=== PATIENT | female | born 1950 | race Caucasian/White ===

== ENCOUNTER → 2017-03-28 | Outpatient (CLI) | payer OTHER | LOC: FIMAGING 15:01 | PROVIDERS: ATTEND Orthopaedic Surgery | DX: I82.432 Acute embolism and thrombosis of left popliteal vein (principal); Z96.652 Presence of left artificial knee joint ==

== ENCOUNTER 2017-08-29 04:22 | Inpatient (IN) | payer OTHER ==
--- NOTE | 2017-08-29 04:28 | EDPHY ---
H & P HPI/ROS: HPI CHIEF COMPLAINT: Alcohol intoxication, fall, right knee pain HISTORY OF PRESENT ILLNESS: Patient is a 67-year-old female significant past medical history for depression, anxiety, she drank alcohol this evening and had 2 large glasses of vodka. She states she got intoxicated and tripped on something coming back in her living room. She fell she thinks she fell around 10:00 p.m. last night. She states that she laid on the ground for multiple hours she did not want alert her family. She was unable to bear weight fully weight on her right knee and decided call 911. EMS arrived to find her on the ground. Noted she has a left eyebrow hematoma and a right hand skin tear. Additionally she complains of right knee pain worse with range of motion. Past Medical History: Anxiety and depression Past Surgical History: Left knee replacement bilateral hip surgery, cholecystectomy, multiple orthopedic surgeries Social History: Daily alcohol use. Denies illicit drugs or tobacco. Family History: Noncontributory ROS REVIEW OF SYSTEMS: A comprehensive 10 point review of systems is otherwise negative aside from elements mentioned in the history of present illness. Exam Constitutional smells of alcohol, intoxicated, triage nursing summary reviewed , vital signs reviewed, awake/alert. Eyes normal conjunctivae and sclera, EOMI, PERRLA. HENT head/neck: Left eyebrow hematoma present, no significant laceration, no midline cervical spine pain or step-offs on palpation, moist mucus membranes, no epistaxis, neck supple/ no meningismus, no raccoon eyes. Respiratory clear to auscultation bilaterally, normal breath sounds, no respiratory distress, no wheezing. Cardiovascular rate normal, regular rhythm, no murmur, no edema, distal pulses normal. Gastrointestinal soft, non-tender, no rebound, no guarding, normal bowel sounds, no distension, no pulsatile mass. Genitourinary no CVA tenderness. Musculoskeletal no midline vertebral tenderness, full range of motion, no calf swelling, no tenderness of extremities, no meningismus, good pulses, neurovascularly intact. Right leg: This is neurovascularly intact. Warm extremity. No significant sign of trauma to the right knee. However with range of motion of the right knee there is pain. Distally good pulse. Skin pink, warm, & dry, no rash, skin atraumatic. Neurologic awake, alert and oriented x 3, AAOx3, moves all 4 extremities equally, motor intact, sensory intact, CN II-XII intact, normal cerebellar, normal vision, normal speech. Psychiatric normal mood/affect. Heme/Lymph/Immune no lymphadenopathy. Differential Diagnosis: Includes but is not limited to in a particular order acute alcohol intoxication, rhabdomyolysis, intracranial bleed, closed head injury, subdural, skull fracture, cervical spine injury, right knee fracture, right knee contusion, ligamentous injury, meniscal injury. Medical Decision Making: Plan for this patient CT head without contrast CT cervical spine without contrast for trauma, x-ray right knee, check basic blood work including CK and kidney function, gentle IV hydration serum alcohol level. Re-evaluation: ED x-ray right knee. This interpreted by myself. IM nail comes down the femur. Significant degenerative joint disease of the knee. Joint space narrowing of the medial aspect of the knee joint. Additionally on the lateral aspect of the femur specifically the femoral condyle there appears to be possibly a small chip fracture. This patient will be placed in knee immobilizer. Crutches. And orthopedic follow-up. 0541: Updated patient about x-ray findings. Her CT scan of her head and neck are negative for acute traumatic injury. She has been placed in knee immobilizer her wounds have been cleaned and Steri-Strips have been placed to her right hand skin tear. There is no visible laceration that needs to be repaired. She is comfortable going home. I do recommend she follows up with orthopedic surgeon. And gets her x-ray reviewed of her right knee. I recommend to her that she does not bear weight of her right knee. Source: Patient, EMS - Personal History Tetanus Vaccine Date: 2006 - Medical/Surgical History Hx Asthma: No Hx Chronic Respiratory Disease: No Hx Diabetes: No Hx Cardiac Disease: No Hx Renal Disease: No Hx Cirrhosis: No Hx Alcoholism: No Hx HIV/AIDS: No Hx Splenectomy or Spleen Trauma: No Other PMH: left hip replacement,osteoporosis,mitral valve,anxiety,depression, pulp HTN - Social History Smoking Status: Never smoked Constitutional: Initial Vital Signs Temperature (C) 37.6 C 08/29/17 04:28 Heart Rate 91 08/29/17 04:28 Respiratory Rate 20 08/29/17 04:28 Blood Pressure 139/79 H 08/29/17 04:28 O2 Sat (%) 94 08/29/17 04:28 O2 Delivery Mode Room Air Allergies/Adverse Reactions: oxycodone [Oxycodone] Allergy (Mild, Verified 08/29/17 04:31) Itching alendronate sodium [From Fosamax] Allergy (Verified 08/29/17 04:31) hydromorphone HCl [From Dilaudid] Allergy (Verified 08/29/17 04:31) Other-Enter Comments morphine [Morphine] Allergy (Verified 08/29/17 04:31) Itching HAYFEVER Allergy (Mild, Uncoded 04/26/12 12:33) Other-Enter Comments Home Medications: Medication Instructions Recorded Cholecalciferol Vit D3 [Vitamin D3 1,000 units PO DAILY 09/30/13 1000 units (OTC)] Citalopram Hydrobromide 40 mg PO DAILY 09/30/13 [Citalopram HBr 40 MG] Cyanocobalamin [Vitamin B12 1000 1,000 mcg PO DAILY 09/30/13 MCG (OTC)] Ferrous Gluconate [Ferrous 324 mg PO DAILY 09/30/13 Gluconate 325 MG (OTC)] Furosemide [Lasix 20 MG (RX)] 40 mg PO DAILY 09/30/13 Herbals/Supplements -Info Only 1 each PO AD 09/30/13 Spironolactone [Aldactone 25 MG 12.5 mg PO DAILY 09/30/13 (RX)] QUEtiapine FUMARATE [Seroquel 25 12.5 mg PO DAILY 01/07/14 mg (RX)] Medical Decision Making - Data Points Laboratory Results: Laboratory Results 08/29/17 04:45 08/29/17 04:45 08/29/17 08/29/17 04:45 04:45 WBC 9.78 10^3/uL H 10^3/uL (3.80-9.50) RBC 4.57 10^6/uL 10^6/uL (4.18-5.33) Hgb 13.6 g/dL g/dL (12.6-16.3) Hct 41.3 % % (38.0-47.0) MCV 90.4 fL fL (81.5-99.8) MCH 29.8 pg pg (27.9-34.1) MCHC 32.9 g/dL g/dL (32.4-36.7) RDW 16.9 % H % (11.5-15.2) Plt Count 255 10^3/uL 10^3/uL (150-400) MPV 9.6 fL fL (8.7-11.7) Neut % (Auto) 77.2 % H % (39.3-74.2) Lymph % (Auto) 13.8 % L % (15.0-45.0) [place] % (Auto) 8.4 % % (4.5-13.0) Eos % (Auto) 0.1 % L % (0.6-7.6) Baso % (Auto) 0.3 % % (0.3-1.7) Nucleat RBC Rel Count 0.0 % % (0.0-0.2) Absolute Neuts (auto) 7.55 10^3/uL H 10^3/uL (1.70-6.50) Absolute Lymphs (auto) 1.35 10^3/uL 10^3/uL (1.00-3.00) Absolute Monos (auto) 0.82 10^3/uL H 10^3/uL (0.30-0.80) Absolute Eos (auto) 0.01 10^3/uL L 10^3/uL (0.03-0.40) Absolute Basos (auto) 0.03 10^3/uL 10^3/uL (0.02-0.10) Absolute Nucleated RBC 0.00 10^3/uL 10^3/uL (0-0.01) Immature Gran % 0.2 % % (0.0-1.1) Immature Gran # 0.02 10^3/uL 10^3/uL (0.00-0.10) Sodium 134 mEq/L mEq/L (134-144) Potassium 4.0 mEq/L mEq/L (3.5-5.2) Chloride 95 mEq/L L mEq/L (97-110) Carbon Dioxide 22 mEq/l mEq/l (22-31) Anion Gap 17 mEq/L H mEq/L (8-16) BUN 10 mg/dL mg/dL (7-23) Creatinine 0.6 mg/dL mg/dL (0.6-1.0) Estimated GFR > 60 Glucose 77 mg/dL mg/dL (70-100) Calcium 9.0 mg/dL mg/dL (8.5-10.4) Creatine Kinase 56 IU/L IU/L (0-156) Ethyl Alcohol 155 mg/dL H mg/dL (0-10) Medications Given: Discontinued Medications Sodium Chloride (Ns) 1,000 mls @ 0 mls/hr IV ONCE ONE PRN Reason: Wide Open Stop: 08/29/17 04:30 Last Admin: 08/29/17 04:45 Dose: 1,000 mls Departure - Departure Disposition: Home, Routine, Self-Care Clinical Impression: Hematoma Alcohol intoxication Qualifiers: Complication of substance-induced condition: uncomplicated Qualified Code(s): F10.920 - Alcohol use, unspecified with intoxication, uncomplicated Fall Qualifiers: Encounter type: initial encounter Qualified Code(s): W19.XXXA - Unspecified fall, initial encounter Contusion, knee Qualifiers: Encounter type: initial encounter Laterality: right Qualified Code(s): S80.01XA - Contusion of right knee, initial encounter Condition: Good Instructions: Fall Prevention for Older Adults (ED), Contusion in Adults (ED), Hematoma (ED) Additional Instructions: 1. Please stay in your knee immobilizer for immobilization and pain control. 2. Additionally please follow up with Orthopedics. 3. Crutches to help ambulate. 4. I do believe there may be a very small chip fracture tear knee. Follow up with Orthopedics. Referrals: Vik Aguilar MD [Medical Doctor] - As per Instructions Patient,NotPresent [Unknown] - As per Instructions Brennen Negrete MD [Medical Doctor] - As per Instructions
[2017-08-29] MEDS ORDERED: NS 1,000 ML IV ONE (04:29)
[2017-08-29 05:01] LABS: % IMMATURE GRANULYOCYTES 0.2 % (0.0-1.1); ABSOLUTE IMMATURE GRANULOCYTES 0.02 10^3/uL (0.00-0.10); ADD DIFF? NO; ADD MORPH? NO; ADD SCAN? NO; ATYPICAL LYMPHOCYTE FLAG 0 (0-99); FRAGMENT RBC FLAG 0 (0-99); HEMATOCRIT 41.3 % (38.0-47.0); HEMOGLOBIN 13.6 g/dL (12.6-16.3); LEFT SHIFT FLG 0 (0-99); LIPEMIA HEMOLYSIS FLAG 80 (0-99); MEAN CELL HEMOGLOBIN 29.8 pg (27.9-34.1); MEAN CELL HEMOGLOBIN CONCENTR. 32.9 g/dL (32.4-36.7); MEAN CELL VOLUME 90.4 fL (81.5-99.8); MEAN PLATELET VOLUME 9.6 fL (8.7-11.7); PLATELET CLUMPS FLAG 10 (0-99); PLATELET COUNT 255 10^3/uL (150-400); RED BLOOD CELL COUNT 4.57 10^6/uL (4.18-5.33); RED CELL DISTRIBUTION WIDTH 16.9 % (11.5-15.2)
[2017-08-29 05:19] LABS: ANION GAP 17 mEq/L (8-16); CARBON DIOXIDE 22 mEq/l (22-31); CHLORIDE 95 mEq/L (97-110); CREATININE 0.6 mg/dL (0.6-1.0); ETHANOL SERUM 155 mg/dL (0-10); GLOMERULAR FILTRATION RATE > 60; GLUCOSE 77 mg/dL (70-100); SODIUM 134 mEq/L (134-144)
[2017-08-29] MEDS ORDERED: ONDANSETRON 4 MG/2 ML VIAL IVP PRN (06:24)
[2017-08-29] MEDS ORDERED: ONDANSETRON DISINTEGRATING 4 MG TAB PO PRN (06:24)
--- NOTE | 2017-08-29 06:46 | PDGENHP ---
History and Physical - Chief Complaint Fall - History of Present Illness 67 yo F w/ hx of HTN, depression, and ETOH abuse presents after fall. Patient explains she had 3 large vodka drinks and then tripped. She fell and she thinks she hit her R knee, which now hurts. She has a history of multiple joint replacements and uses a cane to walk due to knee instability. Work-up in ED was notable for possible chip fracture or R lateral femoral condyle but otherwise reassuring. She was admitted because she was unable to ambulate safely while in a knee immobilizer. Patient is aware that she drinks too much and would like to stop. She drinks almost daily but denies any hx of ETOH withdrawal. History Information - Allergies/Home Medication List Allergies/Adverse Reactions: oxycodone [Oxycodone] Allergy (Mild, Verified 08/29/17 04:31) Itching alendronate sodium [From Fosamax] Allergy (Verified 08/29/17 04:31) hydromorphone HCl [From Dilaudid] Allergy (Verified 08/29/17 04:31) Other-Enter Comments morphine [Morphine] Allergy (Verified 08/29/17 04:31) Itching HAYFEVER Allergy (Mild, Uncoded 04/26/12 12:33) Other-Enter Comments Home Medications: Cholecalciferol Vit D3 [Vitamin D3 1000 units (OTC)] 1,000 units PO DAILY [Last Taken 01/07/14] Citalopram Hydrobromide [Citalopram HBr 40 MG] 40 mg PO DAILY 09/30/13 [Last Taken 01/07/14] Cyanocobalamin [Vitamin B12 1000 MCG (OTC)] 1,000 mcg PO DAILY 09/30/13 [Last Taken 01/07/14] Ferrous Gluconate [Ferrous Gluconate 325 MG (OTC)] 324 mg PO DAILY 09/30/13 [ Last Taken 01/07/14] Furosemide [Lasix 20 MG (RX)] 40 mg PO DAILY 09/30/13 [Last Taken 01/07/14] Herbals/Supplements -Info Only 1 each PO AD 09/30/13 [Last Taken 09/29/13] Spironolactone [Aldactone 25 MG (RX)] 12.5 mg PO DAILY 09/30/13 [Last Taken ] QUEtiapine FUMARATE [Seroquel 25 mg (RX)] 12.5 mg PO DAILY 01/07/14 [Last Taken 01/07/14] I have personally reviewed and updated: family history, medical history - Past Medical History hypertension Additional medical history: Depression - Surgical History Additional surgical history: Multiple joint surgeries - Family History Positive for: cancer - Social History Smoking Status: Never smoked Alcohol Use: Heavy Review of Systems Review of Systems: ROS: 10pt was reviewed & negative except for what was stated in HPI & below Physical Exam Physical Exam: Temp Pulse Resp BP Pulse Ox 37.6 C 96 20 139/79 H 95 08/29/17 04:28 08/29/17 06:25 08/29/17 06:25 08/29/17 06:25 08/29/17 06:25 Constitutional: no apparent distress, appears nourished Eyes: PERRL, EOMI Ears, Nose, Mouth, Throat: moist mucous membranes, no oral mucosal ulcers Cardiovascular: regular rate and rhythym, no murmur, rub, or gallop Respiratory: no respiratory distress, no rales or rhonchi Gastrointestinal: normoactive bowel sounds, soft, non-tender abdomen Skin: warm, normal color Musculoskeletal: full muscle strength, no muscle tenderness, other (R knee in immobilizer) Neurologic: AAOx3, CN II-XII Intact Psychiatric: interacting appropriately, not anxious Lab Data & Imaging Review 08/29/17 04:45 08/29/17 04:45 WBC 9.78 10^3/uL (3.80-9.50) H 08/29/17 04:45 RBC 4.57 10^6/uL (4.18-5.33) 08/29/17 04:45 Hgb 13.6 g/dL (12.6-16.3) 08/29/17 04:45 Hct 41.3 % (38.0-47.0) 08/29/17 04:45 MCV 90.4 fL (81.5-99.8) 08/29/17 04:45 MCH 29.8 pg (27.9-34.1) 08/29/17 04:45 MCHC 32.9 g/dL (32.4-36.7) 08/29/17 04:45 RDW 16.9 % (11.5-15.2) H 08/29/17 04:45 Plt Count 255 10^3/uL (150-400) 08/29/17 04:45 MPV 9.6 fL (8.7-11.7) 08/29/17 04:45 Neut % (Auto) 77.2 % (39.3-74.2) H 08/29/17 04:45 Lymph % (Auto) 13.8 % (15.0-45.0) L 08/29/17 04:45 [place] % (Auto) 8.4 % (4.5-13.0) 08/29/17 04:45 Eos % (Auto) 0.1 % (0.6-7.6) L 08/29/17 04:45 Baso % (Auto) 0.3 % (0.3-1.7) 08/29/17 04:45 Nucleat RBC Rel Count 0.0 % (0.0-0.2) 08/29/17 04:45 Absolute Neuts (auto) 7.55 10^3/uL (1.70-6.50) H 08/29/17 04:45 Absolute Lymphs (auto) 1.35 10^3/uL (1.00-3.00) 08/29/17 04:45 Absolute Monos (auto) 0.82 10^3/uL (0.30-0.80) H 08/29/17 04:45 Absolute Eos (auto) 0.01 10^3/uL (0.03-0.40) L 08/29/17 04:45 Absolute Basos (auto) 0.03 10^3/uL (0.02-0.10) 08/29/17 04:45 Absolute Nucleated RBC 0.00 10^3/uL (0-0.01) 08/29/17 04:45 Immature Gran % 0.2 % (0.0-1.1) 08/29/17 04:45 Immature Gran # 0.02 10^3/uL (0.00-0.10) 08/29/17 04:45 Sodium 134 mEq/L (134-144) 08/29/17 04:45 Potassium 4.0 mEq/L (3.5-5.2) 08/29/17 04:45 Chloride 95 mEq/L (97-110) L 08/29/17 04:45 Carbon Dioxide 22 mEq/l (22-31) 08/29/17 04:45 Anion Gap 17 mEq/L (8-16) H 08/29/17 04:45 BUN 10 mg/dL (7-23) 08/29/17 04:45 Creatinine 0.6 mg/dL (0.6-1.0) 08/29/17 04:45 Estimated GFR > 60 08/29/17 04:45 Glucose 77 mg/dL (70-100) 08/29/17 04:45 Calcium 9.0 mg/dL (8.5-10.4) 08/29/17 04:45 Creatine Kinase 56 IU/L (0-156) 08/29/17 04:45 Ethyl Alcohol 155 mg/dL (0-10) H 08/29/17 04:45 Assessment & Plan Assessment: 67 yo F presenting with mechanical fall admitted for inability to ambulate and R knee injury. Plan: 1. R knee pain - Xray with possible R lateral condyle fracture but no formal read yet. Patient unable to ambulate as a result. - Await formal read - Trauma surgery consulted, appreciate assistance - PT/OT consults 2. ETOH abuse - Patient understands the drinks too much and would like to stop. She has no current signs of withdrawal and denies prior history of this. - Monitor for signs of withdrawal, will not order CIWA at this time - CM consult 3. HTN - On spironolactone and furosemide as an outpatient 4. Depression - On Seroquel and Celexa as outpatient Diet - Regular Code - Full Ppx - SCDs Dispo - Admit to observation status
[2017-08-29] MEDS: ACETAMINOPHEN 325 MG TAB PO PRN (10:51)
[2017-08-29] MEDS ORDERED: fentaNYL 100 MCG/2 ML INJ IVP PRN (10:51)
[2017-08-29] MEDS: oxyCODONE IR 5 MG TAB PO PRN ×3 (10:51→21:33)
[2017-08-29] MEDS ORDERED: chlordiazePOXIDE 25 MG CAP PO PRN (10:52)
[2017-08-29] MEDS: THIAMINE HCL 500 MG in NS 100 ML IV SCH (12:26)
--- NOTE | 2017-08-29 16:10 | GCON ---
[f rep st] CONSULTATION TRAUMA CONSULTATION REASON FOR CONSULTATION: Lateral tibial plateau fracture. HISTORY: The patient is a 67-year-old white female who has a close relationship with alcohol. She has had multiple other orthopedic fractures due to alcohol consumption. Last night she was drinking as she does every night and she went to let the cat in, tripped over her legs and landed on the floor, where she laid for 6 hours waiting for her sons to come home. She was then taken to the ER. In the ER, her blood alcohol was 157, implying that her alcohol at the time she fell was probably more on the order of 275. She states she understands that alcohol is a problem for her and she plans make a significant change. She was found last night in the ER to have a left eyebrow hematoma and right hand skin tear. PAST MEDICAL HISTORY: Shows problems with anxiety and depression. PAST SURGICAL HISTORY: Left knee replacement, bilateral hip surgery, I believe bilateral femur rodding, other orthopedic surgeries and a cholecystectomy. She denies tobacco and illicit drug use. REVIEW OF SYSTEMS: Otherwise negative. PHYSICAL EXAMINATION: Focused examination shows a patient who is now awake and pleasant. She seems to have some insight into the etiology of her recurring issues. Hopefully, she will be able to do something about that. HEAD: The skull is normocephalic and atraumatic except for left eyebrow hematoma. There are no lacerations. NECK: Shows no midline cervical pain or step-offs. SPINE : Palpably normal. LUNGS: Clear to auscultation bilaterally. There is no wheezing. CARDIAC: Shows S1, S2 to be normal. No split of S2 without murmurs , rubs, or gallops. ABDOMEN: Soft and nontender. There is normoactive bowel sounds and no distention. PELVIS: Stable to AP and lateral compression. I did not examine her right leg at this time. SKIN: Otherwise warm, pink, and dry. NEUROLOGIC: She is alert and oriented x3. GCS is 15 at this point. She does move all extremities. Sensory appears to be intact. Cranial nerves are intact. She has normal cerebellar function. Normal vision. Normal speech. She did undergo CT scanning which was negative for acute traumatic injury. Because she is not able to walk, she was admitted for care to the medicine service. Orthopedic consultation has been requested. CURRENT MEDICATIONS: Include vitamin D3 1000 units daily, citalopram 40 mg daily, vitamin B12 1000 mg daily, ferrous gluconate 325 mg daily, Aldactone 12.5 mg daily and Seroquel 12.5 mg daily. I find no other traumatic issues at this point. If the trauma department can be of any further service, please do not hesitate to reconsult. /[id number]/MODL MTDD
--- NOTE | 2017-08-29 16:47 | GCON ---
[f rep st] CONSULTATION ORTHOPEDIC CONSULTATION DATE OF CONSULTATION: 08/29/2017 REASON FOR CONSULTATION: Right tibial plateau fracture. HISTORY OF PRESENT ILLNESS: This is a patient known to me from previous fractures, who fell early this morning after drinking and sustaining a complex comminuted depressed tibial plateau fracture on her right side. She was scheduled to have a total knee replacement done on this knee early next year. She also did strike her head at the time of the fall. She has been admitted to the hospital. PRIOR MEDICAL HISTORY: Osteoporosis, hypertension, obesity, depression, and alcoholism. SOCIAL HISTORY: She lives here in [place]. Her son is involved in her care and lives nearby. She does not smoke. She does drink almost daily and reports heavy drinking recently. REVIEW OF SYSTEMS: Not having any shortness of breath or chest pain at this point. She has a little bit of a headache on the left side of her head. PHYSICAL EXAMINATION: CONSTITUTIONAL: Alert and oriented x3. She has a little abrasion over her left eye, swollen. VITAL SIGNS: At the bedside today , blood pressure 117/93, heart rate 82, respiratory rate of 16, oxygen saturations 95% on room air. EXTREMITIES: A swollen right knee. Thigh compartments and lower extremity compartments are all soft. Peroneal nerve function is intact, both sensation and motor. She has 1+ dorsalis pedis and posterior tibial pulses. IMAGING: Both plain imaging and CT scans with 3D reconstructions are reviewed. She has a very complex fracture involving the lateral side of the joint with both depression and fragmentation of the bone. From previous surgeries, I know she has very poor bone quality, which is evidenced by the fracture pattern here. The femoral justine is in place in the femur with no signs of breakage around that. Femur appears without fracture. ASSESSMENT: Complex, comminuted, depressed tibial plateau fracture, right lower extremity. PLAN: Long discussion with the patient and her son. I do not think there is enough bone to work with to attempt an open reduction/internal fixation. I also do not think, at this point, we could attempt a long-stemmed tibial prosthesis, even with cones, given that the lateral wall of the tibia is blown out. So, I think the safest course of action at this point would be to keep her nonweightbearing for the next 8-12 weeks, try and get some tibia to consolidate, and then in a single surgery come back and put a total knee arthroplasty in there using the [employer] robot for the femoral cuts, given that she has a femoral justine there, and a long stem tibial prosthesis possibly with a cone or lateral buildup on the lateral side of the joint where she has lost height. This was explained in detail to the patient and her son. I do not think she is going to be able to mobilize safely to go home, so she will probably need an extended half-way facility stay. The other problem is her left knee. The patella is tracking poorly and dislocates when her knee is in about 45 degrees of flexion. So, we may need to try to immobilize the left knee when she is mobilizing to keep it more stable and to keep the patella from dislocating. I spoke with her physical therapist today, and we will try that tomorrow when we try to mobilize her. Third problem is her risk of DVT. She had a DVT after a total knee replacement on the left and was treated with a course of Xarelto for that; however, given that she is obese and is going to be , for the most part, very limited in her mobility, she is at a high risk for a blood clot due to this right knee injury, and will need to choose some anticoagulation probably for the next 6 weeks or so. I will discuss this with the hospitalists and see what the choice of anticoagulation agents may be most useful. Will allow her to eat at this point. I anticipate she will be here in the hospital at least a few days before she is ready to transfer to a half-way facility. /[id number]/MODL MTDD
--- NOTE | 2017-08-29 19:06 | HOSPPROG ---
Hospitalist Progress Note Assessment/Plan: * Right tibial plateau fracture -NWB 8-12 weeks, with eventual TKA * Left patellar dislocation * h/o DVT -Lovenox prophylaxis * Etoh abuse -watch for withdrawal * HTN * Depression Subjective: Severe pain, IV narcotics cause severe itching Objective: Vital Signs Temp Pulse Resp BP Pulse Ox 37.0 C 90 16 145/77 H 92 08/29/17 16:08 08/29/17 16:08 08/29/17 16:08 08/29/17 16:08 08/29/17 16:08 08/28/17 08/29/17 08/30/17 05:59 05:59 05:59 Intake Total 200 Balance 200 - Physical Exam Constitutional: no apparent distress, appears nourished, not in pain Cardiovascular: regular rate and rhythym, no murmur, rub, or gallop Respiratory: no respiratory distress, no rales or rhonchi, clear to auscultation Gastrointestinal: normoactive bowel sounds, soft, non-tender abdomen, no palpable masses Skin: no rashes or abrasions, no fluctuance, no induration Neurologic: AAOx3, sensation intact bilaterally Psychiatric: interacting appropriately, not anxious, not encephalopathic, thought process linear ICD10 Worksheet Patient Problems: Problems Problem Status Onset Alcohol intoxication Acute Contusion, knee Acute Fall Acute Hematoma Acute Alcohol abuse Active Benign essential hypertension Active Falls Active Fracture of neck of femur Active Mitral valve regurgitation Active MRSA (methicillin resistant Staphylococcus aureus) Acute ~04/16/17
[2017-08-29] MEDS ORDERED: CITALOPRAM HYDROBROMIDE 40 MG PO SCH (21:00)
[2017-08-29] MEDS: CALCIUM CARBONATE 500 MG TAB PO SCH (21:33)
[2017-08-29] MEDS: SPIRONOLACTONE 25 MG TAB PO SCH (21:34)
[2017-08-29] MEDS: QUEtiapine FUMARATE 25 MG TAB PO SCH (21:34)
[2017-08-29] MEDS: CITALOPRAM 20 MG TAB PO SCH (21:34)
[2017-08-29] MEDS: LORazepam 2 MG/ML INJ IVP PRN (21:38)
[2017-08-30] MEDS: LORazepam 2 MG/ML INJ IVP PRN ×3 (01:45→21:18)
[2017-08-30 05:08] LABS: CALCIUM 8.7 mg/dL (8.5-10.4); CARBON DIOXIDE 22 mEq/l (22-31); CHLORIDE 103 mEq/L (97-110); CREATININE 0.4 mg/dL (0.6-1.0); GLUCOSE 114 mg/dL (70-100); MAGNESIUM 2.1 mg/dL (1.6-2.3); SODIUM 138 mEq/L (134-144)
[2017-08-30 05:13] LABS: % IMMATURE GRANULYOCYTES 0.5 % (0.0-1.1); ABSOLUTE IMMATURE GRANULOCYTES 0.06 10^3/uL (0.00-0.10); ADD DIFF? NO; ADD MORPH? NO; ADD SCAN? NO; ATYPICAL LYMPHOCYTE FLAG 0 (0-99); FRAGMENT RBC FLAG 20 (0-99); HEMATOCRIT 38.3 % (38.0-47.0); HEMOGLOBIN 12.4 g/dL (12.6-16.3); LEFT SHIFT FLG 0 (0-99); LIPEMIA HEMOLYSIS FLAG 80 (0-99); MEAN CELL HEMOGLOBIN 29.5 pg (27.9-34.1); MEAN CELL HEMOGLOBIN CONCENTR. 32.4 g/dL (32.4-36.7); MEAN CELL VOLUME 91.2 fL (81.5-99.8); MEAN PLATELET VOLUME 9.7 fL (8.7-11.7); PLATELET CLUMPS FLAG 10 (0-99); PLATELET COUNT 227 10^3/uL (150-400); RED CELL DISTRIBUTION WIDTH 16.9 % (11.5-15.2)
[2017-08-30] MEDS: oxyCODONE IR 5 MG TAB PO PRN ×3 (06:32→20:23)
[2017-08-30 06:34] LABS: ANION GAP 13 mEq/L (8-16); GLOMERULAR FILTRATION RATE > 60; POTASSIUM 3.8 mEq/L (3.5-5.2)
[2017-08-30] MEDS ORDERED: FLU VACC QS 2017-18 (3YR+)/PF 0.5 ML SYR (FLUARIX QUAD) IM ONE (08:25)
[2017-08-30] MEDS: ENOXAPARIN 40 MG/0.4 ML SYR SC SCH (08:32)
[2017-08-30] MEDS: CYANO/VITAMIN B12 1000 MCG TAB PO SCH (08:32)
[2017-08-30] MEDS: CHOLECALCIFEROL VIT D3 2,000 UNITS TAB/CAP PO SCH (08:33)
[2017-08-30] MEDS: FUROSEMIDE 40 MG TAB PO SCH (08:33)
[2017-08-30] MEDS: CALCIUM CARBONATE 500 MG TAB PO SCH ×2 (08:33→20:22)
--- NOTE | 2017-08-30 11:11 | PDMN ---
Medical Necessity Medical necessity: Pt meets IP criteria per MD; est los >2 mn for eval/tx of R tibial plateau fx & L patellar dislocation r/t fall, hx htn, DVT; per progress note & order 08/29/17
[2017-08-30] MEDS: THIAMINE HCL 500 MG in NS 100 ML IV SCH (12:20)
--- NOTE | 2017-08-30 13:32 | SOAPPROG ---
[facility] Progress Note Assessment/Plan: Assessment: Plan: 08/30/17 13:31 Rt tibial plateau fx NWB RLE x 8-12 weeks DVT proph SNF Subjective: Pain about the same rt knee transfer to Bedside commode with A X 3 Objective: RT knee swollen compartments soft peroneal nerve function intact Vital Signs Temp Pulse Resp BP Pulse Ox 36.8 C 85 15 142/90 H 96 08/30/17 08:16 08/30/17 11:29 08/30/17 11:29 08/30/17 11:29 08/30/17 11:29 Laboratory Results 08/30/17 04:42 08/30/17 04:42 08/29/17 08/30/17 08/31/17 05:59 05:59 05:59 Intake Total 200 Balance 200 ICD10 Worksheet Patient Problems: Problems Problem Status Onset Alcohol intoxication Acute Contusion, knee Acute Fall Acute Hematoma Acute Alcohol abuse Active Benign essential hypertension Active Falls Active Fracture of neck of femur Active Mitral valve regurgitation Active MRSA (methicillin resistant Staphylococcus aureus) Acute ~04/16/17
[2017-08-30] MEDS: ACETAMINOPHEN 325 MG TAB PO PRN (16:08)
--- NOTE | 2017-08-30 16:53 | ASMTCMCOM ---
CM Note CM Note Notes: Pt admitted after fall at home, reports she had drank 2-3 glasses of vodka prior. Pt reports almost daily ETOH use, yesterday RN Devi states pt expressed wanting to treat this substance use. Provided pt ETOH resources. Spoke with pt regarding Dr. Penelope ritter for SNF (PT/OT evals pending), pt in agreement she needs SNF, has been to [facility] and [facility] in the past. Pt refuses to go to again and ideally would stay in [place]. Pt [facility]1 choice is [facility], #2 [facility] and #3 [facility]; referrals sent to each. Pt has depression and anxiety, PASRR does not trigger. D/c plan of care: SNF when medically stable, TBD which SNF Date Signed: 08/30/2017 04:52 PM Electronically Signed By:DAKOTA Adler
--- NOTE | 2017-08-30 17:42 | HOSPPROG ---
Hospitalist Progress Note Assessment/Plan: * Right tibial plateau fracture -NWB 8-12 weeks, with eventual TKA * Left patellar dislocation * h/o DVT -Lovenox prophylaxis * Etoh abuse -watch for withdrawal * HTN * Depression Subjective: No new complaints Objective: Vital Signs Temp Pulse Resp BP Pulse Ox 36.9 C 89 14 150/77 H 95 08/30/17 16:00 08/30/17 16:00 08/30/17 16:00 08/30/17 16:00 08/30/17 16:00 Laboratory Results 08/30/17 04:42 08/30/17 04:42 08/29/17 08/30/17 08/31/17 05:59 05:59 05:59 Intake Total 200 Balance 200 - Physical Exam Constitutional: no apparent distress, appears nourished, not in pain Cardiovascular: regular rate and rhythym, no murmur, rub, or gallop Respiratory: no respiratory distress, no rales or rhonchi, clear to auscultation Gastrointestinal: normoactive bowel sounds, soft, non-tender abdomen, no palpable masses Skin: no rashes or abrasions, no fluctuance, no induration Neurologic: AAOx3, sensation intact bilaterally Psychiatric: interacting appropriately, not anxious, not encephalopathic, thought process linear ICD10 Worksheet Patient Problems: Problems Problem Status Onset Alcohol intoxication Acute Contusion, knee Acute Fall Acute Hematoma Acute Alcohol abuse Active Benign essential hypertension Active Falls Active Fracture of neck of femur Active Mitral valve regurgitation Active MRSA (methicillin resistant Staphylococcus aureus) Acute ~04/16/17
[2017-08-30] MEDS: QUEtiapine FUMARATE 25 MG TAB PO SCH (20:22)
[2017-08-30] MEDS: SPIRONOLACTONE 25 MG TAB PO SCH (20:22)
[2017-08-30] MEDS: CITALOPRAM 20 MG TAB PO SCH (20:22)
[2017-08-31] MEDS: oxyCODONE IR 5 MG TAB PO PRN ×3 (00:26→16:38)
[2017-08-31 05:02] LABS: % IMMATURE GRANULYOCYTES 0.5 % (0.0-1.1); ABSOLUTE IMMATURE GRANULOCYTES 0.04 10^3/uL (0.00-0.10); ADD DIFF? NO; ADD MORPH? NO; ADD SCAN? NO; ATYPICAL LYMPHOCYTE FLAG 10 (0-99); FRAGMENT RBC FLAG 0 (0-99); HEMATOCRIT 34.6 % (38.0-47.0); HEMOGLOBIN 11.2 g/dL (12.6-16.3); LEFT SHIFT FLG 0 (0-99); LIPEMIA HEMOLYSIS FLAG 80 (0-99); MEAN CELL HEMOGLOBIN 29.9 pg (27.9-34.1); MEAN CELL HEMOGLOBIN CONCENTR. 32.4 g/dL (32.4-36.7); MEAN CELL VOLUME 92.3 fL (81.5-99.8); MEAN PLATELET VOLUME 9.8 fL (8.7-11.7); PLATELET CLUMPS FLAG 0 (0-99); PLATELET COUNT 155 10^3/uL (150-400); RED BLOOD CELL COUNT 3.75 10^6/uL (4.18-5.33)
[2017-08-31 05:16] LABS: ANION GAP 7 mEq/L (8-16); CARBON DIOXIDE 30 mEq/l (22-31); CHLORIDE 101 mEq/L (97-110); CREATININE 0.5 mg/dL (0.6-1.0); GLOMERULAR FILTRATION RATE > 60; GLUCOSE 88 mg/dL (70-100); POTASSIUM 3.3 mEq/L (3.5-5.2); SODIUM 138 mEq/L (134-144)
[2017-08-31] MEDS: CHOLECALCIFEROL VIT D3 2,000 UNITS TAB/CAP PO SCH (09:19)
[2017-08-31] MEDS: TAPENTADOL HCL 50 MG TAB PO PRN ×3 (09:19→21:05)
[2017-08-31] MEDS: ENOXAPARIN 40 MG/0.4 ML SYR SC SCH (09:19)
[2017-08-31] MEDS: CYANO/VITAMIN B12 1000 MCG TAB PO SCH (09:19)
[2017-08-31] MEDS: FUROSEMIDE 40 MG TAB PO SCH (09:20)
[2017-08-31] MEDS: CALCIUM CARBONATE 500 MG TAB PO SCH ×2 (09:20→21:05)
[2017-08-31] MEDS: THIAMINE HCL 500 MG in NS 100 ML IV SCH (10:25)
[2017-08-31] MEDS ORDERED: PROTOCOL POTASSIUM 1 DOSE MISC PRN (11:05)
--- NOTE | 2017-08-31 13:52 | HOSPPROG ---
Hospitalist Progress Note Assessment/Plan: * Right tibial plateau fracture -NWB 8-12 weeks, with eventual TKA * Left patellar dislocation * h/o DVT -Lovenox prophylaxis * Etoh abuse -watch for withdrawal * HTN * Depression * Hypoxia - suspect atelectasis due to hypoventilation -CXR and BLE US negative -consider work-up for PE, but unlikely Subjective: No new complaints. Objective: Vital Signs Temp Pulse Resp BP Pulse Ox 37.0 C 90 16 127/75 H 96 08/31/17 12:00 08/31/17 12:00 08/31/17 12:00 08/31/17 12:00 08/31/17 12:00 Laboratory Results 08/31/17 04:49 08/31/17 04:49 08/30/17 08/31/17 09/01/17 05:59 05:59 05:59 Intake Total 200 500 Balance 200 500 CXR viewed, my personal interpretation is - negative BLE US - no DVT - Physical Exam Constitutional: no apparent distress, appears nourished, not in pain Cardiovascular: regular rate and rhythym, no murmur, rub, or gallop Respiratory: no respiratory distress, no rales or rhonchi, clear to auscultation Gastrointestinal: normoactive bowel sounds, soft, non-tender abdomen, no palpable masses Skin: no rashes or abrasions, no fluctuance, no induration Neurologic: AAOx3, sensation intact bilaterally Psychiatric: interacting appropriately, not anxious, not encephalopathic, thought process linear ICD10 Worksheet Patient Problems: Problems Problem Status Onset Alcohol intoxication Acute Contusion, knee Acute Fall Acute Hematoma Acute Alcohol abuse Active Benign essential hypertension Active Falls Active Fracture of neck of femur Active Mitral valve regurgitation Active MRSA (methicillin resistant Staphylococcus aureus) Acute ~04/16/17
[2017-08-31] MEDS: POTASSIUM/SODIUM PHOSPHATE 1 PKT PO SCH ×2 (14:39→21:05)
[2017-08-31 19:01] LABS: POTASSIUM 4.1 mEq/L (3.5-5.2)
[2017-08-31] MEDS: QUEtiapine FUMARATE 25 MG TAB PO SCH (21:05)
[2017-08-31] MEDS: CITALOPRAM 20 MG TAB PO SCH (21:05)
[2017-08-31] MEDS: SPIRONOLACTONE 25 MG TAB PO SCH (21:05)
[2017-09-01] MEDS: POTASSIUM/SODIUM PHOSPHATE 1 PKT PO SCH ×5 (00:19→21:04)
[2017-09-01] MEDS: oxyCODONE IR 5 MG TAB PO PRN ×4 (00:19→13:25)
[2017-09-01 07:48] VITALS: RESP 16
[2017-09-01] MEDS: THIAMINE HCL 500 MG in NS 100 ML IV SCH (09:19)
[2017-09-01] MEDS: CHOLECALCIFEROL VIT D3 2,000 UNITS TAB/CAP PO SCH (09:20)
[2017-09-01] MEDS: FUROSEMIDE 40 MG TAB PO SCH (09:20)
[2017-09-01] MEDS: CYANO/VITAMIN B12 1000 MCG TAB PO SCH (09:20)
[2017-09-01] MEDS: CALCIUM CARBONATE 500 MG TAB PO SCH ×2 (09:20→21:05)
[2017-09-01] MEDS: ENOXAPARIN 40 MG/0.4 ML SYR SC SCH (09:20)
[2017-09-01 10:00] LABS: ANION GAP 10 mEq/L (8-16); CALCIUM 8.3 mg/dL (8.5-10.4); CARBON DIOXIDE 27 mEq/l (22-31); CHLORIDE 101 mEq/L (97-110); CREATININE 0.5 mg/dL (0.6-1.0); GLOMERULAR FILTRATION RATE > 60; GLUCOSE 124 mg/dL (70-100); MAGNESIUM 1.9 mg/dL (1.6-2.3); POTASSIUM 3.4 mEq/L (3.5-5.2); SODIUM 138 mEq/L (134-144)
[2017-09-01] MEDS ORDERED: POTASSIUM CL 10 MEQ TAB PO ONE (11:41)
[2017-09-01] MEDS ORDERED: IOPAMIDOL (ISOVUE 370) 100 ML BTL IV ONE (12:35)
[2017-09-01] MEDS: LORazepam 2 MG/ML INJ IVP PRN (14:17)
--- NOTE | 2017-09-01 14:54 | ASMTCMCOM ---
CM Note CM Note Notes: Met with patient to review dc POC. She is dissapointed that [facility] has a bed. She is strongly hoping for [facility]. She lives with an adult son. Has good insight to association of depression and self medication with alcohol. She states she is ready to quit and has made proclamation to her friends and family. Emotional support provided. CM to follow. CM Note Pt admitted after fall at home, reports she had drank 2-3 glasses of vodka prior. Pt reports almost daily ETOH use, yesterday BRODERICK Quinonez states pt expressed wanting to treat this substance use. Provided pt ETOH resources. Spoke with pt regarding Dr. Penelope ritter for SNF (PT/OT nova pending), pt in agreement she needs SNF, has been to [facility] and [facility] in the past. Pt refuses to go to again and ideally would stay in [place]. Pt #1 choice is [facility], #2 [facility] and #3 [facility]; referrals sent to each. Pt has depression and anxiety, PASRR does not trigger. D/c plan of care: SNF when medically stable, TBD which SNF Date Signed: 09/01/2017 02:53 PM Electronically Signed By:Brenda Thomas RN
--- NOTE | 2017-09-01 17:32 | HOSPPROG ---
Hospitalist Progress Note Assessment/Plan: * Right tibial plateau fracture -NWB 8-12 weeks, with eventual TKA * Left patellar dislocation -patella dislocated and stuck - now left knee hurts worse than right -ortho to re-eval in am * h/o DVT -Lovenox prophylaxis * Etoh abuse -no significant withdrawal * HTN * Depression * Hypoxia - suspect atelectasis due to hypoventilation -no PE/DVT -IS * MRSA colonization * h/o gastric bypass surgery -son concerned about poor PO intake -dietary consult Subjective: Patella on left dislocated and not going back Objective: Vital Signs Temp Pulse Resp BP Pulse Ox 36.7 C 103 H 16 114/66 92 09/01/17 16:00 09/01/17 16:00 09/01/17 16:00 09/01/17 16:00 09/01/17 16:00 Laboratory Results 09/01/17 05:45 09/01/17 09:38 08/31/17 09/01/17 09/02/17 05:59 05:59 05:59 Intake Total 500 500 Balance 500 500 d/w Dr. Nino - Dr. Negrete to see in am regarding patella CTA chest - no PE - Physical Exam Constitutional: no apparent distress, appears nourished, not in pain Cardiovascular: regular rate and rhythym, no murmur, rub, or gallop Respiratory: no respiratory distress, no rales or rhonchi, clear to auscultation Gastrointestinal: normoactive bowel sounds, soft, non-tender abdomen, no palpable masses Skin: no rashes or abrasions, no fluctuance, no induration Neurologic: AAOx3, sensation intact bilaterally Psychiatric: interacting appropriately, not anxious, not encephalopathic, thought process linear ICD10 Worksheet Patient Problems: Problems Problem Status Onset Alcohol intoxication Acute Contusion, knee Acute Fall Acute Hematoma Acute Alcohol abuse Active Benign essential hypertension Active Falls Active Fracture of neck of femur Active Mitral valve regurgitation Active MRSA (methicillin resistant Staphylococcus aureus) Acute ~04/16/17
[2017-09-01 18:40] LABS: POTASSIUM 4.7 mEq/L (3.5-5.2)
[2017-09-01 19:02] LABS: COLOR YELLOW; LEUKOCYTE ESTERASE,URINE TRACE (NEGATIVE); NITRITE,URINE NEGATIVE (NEGATIVE)
[2017-09-01 19:06] LABS: MUCUS TRACE /lpf (NONE-1+)
[2017-09-01] MEDS: QUEtiapine FUMARATE 25 MG TAB PO SCH (21:04)
[2017-09-01] MEDS: SPIRONOLACTONE 25 MG TAB PO SCH (21:04)
[2017-09-01] MEDS: CITALOPRAM 20 MG TAB PO SCH (21:04)
[2017-09-02 05:14] LABS: % IMMATURE GRANULYOCYTES 0.4 % (0.0-1.1); ABSOLUTE IMMATURE GRANULOCYTES 0.03 10^3/uL (0.00-0.10); ADD DIFF? NO; ADD MORPH? NO; ADD SCAN? NO; ATYPICAL LYMPHOCYTE FLAG 10 (0-99); FRAGMENT RBC FLAG 0 (0-99); HEMATOCRIT 32.4 % (38.0-47.0); HEMOGLOBIN 10.8 g/dL (12.6-16.3); LEFT SHIFT FLG 0 (0-99); LIPEMIA HEMOLYSIS FLAG 80 (0-99); MEAN CELL HEMOGLOBIN 30.5 pg (27.9-34.1); MEAN CELL HEMOGLOBIN CONCENTR. 33.3 g/dL (32.4-36.7); MEAN CELL VOLUME 91.5 fL (81.5-99.8); MEAN PLATELET VOLUME 9.7 fL (8.7-11.7); PLATELET CLUMPS FLAG 20 (0-99); PLATELET COUNT 217 10^3/uL (150-400); RED BLOOD CELL COUNT 3.54 10^6/uL (4.18-5.33); RED CELL DISTRIBUTION WIDTH 17.2 % (11.5-15.2)
[2017-09-02 05:16] LABS: ANION GAP 7 mEq/L (8-16); CALCIUM 8.5 mg/dL (8.5-10.4); CARBON DIOXIDE 32 mEq/l (22-31); CHLORIDE 102 mEq/L (97-110); CREATININE 0.4 mg/dL (0.6-1.0); GLOMERULAR FILTRATION RATE > 60; GLUCOSE 84 mg/dL (70-100); POTASSIUM 3.6 mEq/L (3.5-5.2); SODIUM 141 mEq/L (134-144)
[2017-09-02 08:14] VITALS: BP 138/61; PULSE 85; TEMP 98.6; O2SAT 98
[2017-09-02] MEDS ORDERED: POTASSIUM CL 10 MEQ TAB PO ONE (08:31)
[2017-09-02] MEDS ORDERED: THIAMINE HCL 100 MG TAB PO SCH (09:00)
[2017-09-02] MEDS: CYANO/VITAMIN B12 1000 MCG TAB PO SCH (09:54)
[2017-09-02] MEDS: ENOXAPARIN 40 MG/0.4 ML SYR SC SCH (09:55)
[2017-09-02] MEDS: CHOLECALCIFEROL VIT D3 2,000 UNITS TAB/CAP PO SCH (09:55)
[2017-09-02] MEDS: FUROSEMIDE 40 MG TAB PO SCH (09:55)
[2017-09-02] MEDS: POTASSIUM/SODIUM PHOSPHATE 1 PKT PO SCH ×2 (09:55→13:08)
[2017-09-02] MEDS: CALCIUM CARBONATE 500 MG TAB PO SCH (09:55)
[2017-09-02] MEDS: oxyCODONE IR 5 MG TAB PO PRN ×2 (09:56→14:47)
--- NOTE | 2017-09-02 12:21 | PDIAF ---
- Diagnosis Diagnosis: Right tibial plateau fracture Code Status: Full Code - Medication Management Discharge Medications: Medications to Continue on Transfer Citalopram Hydrobromide [Citalopram HBr 40 MG] 40 mg PO HS 09/30/13 [Last Taken 08/27/17] Cyanocobalamin [Vitamin B12 (*)] 1,000 mcg PO DAILY 09/30/13 [Last Taken ] Herbals/Supplements -Info Only 1 each PO AD 09/30/13 [Last Taken 09/29/13] Spironolactone [Aldactone 25 MG (*)] 25 mg PO HS 09/30/13 [Last Taken 08/27/17] QUEtiapine FUMARATE [Seroquel 25 mg (*)] 25 mg PO HS 01/07/14 [Last Taken ] Acetaminophen [Tylenol 325mg (*)] 325 mg PO DAILY PRN 08/29/17 [Last Taken 08/28] Furosemide [Lasix 40 MG (*)] 40 mg PO DAILY 08/29/17 [Last Taken 08/28/17] Multivitamins [Multivitamin (*)] 1 each PO DAILY 08/29/17 [Last Taken Unknown] Calcium Carbonate [Oyster Shell Calcium 500 mg (*)] 500 mg PO BID #60 tab [Last Taken Unknown] Cholecalciferol Vit D3 [Vitamin D3 2000 units tab (OTC)] 2,000 units PO DAILY # 30 each 09/02/17 [Last Taken Unknown] Enoxaparin [Lovenox 40 MG (*)] 40 mg SC DAILY #30 syr 09/02/17 [Last Taken Unknown] oxyCODONE IR [Oxycodone Ir (*)] 5 - 10 mg PO Q4H PRN #20 tab 09/02/17 [Last Taken Unknown] Discharge Medications: Refer to the Discharge Home Medication list for PRN reason. - Orders Services needed: Physical Therapy, Occupational Therapy Isolation Type: Contact Isolation Diet Recommendation: no restrictions on diet Activity/Weight Bearing Restrictions: NWB right 8-12 weeks. immobilizer to left knee when OOB Additional: Continue Lovenox until increased mobility (h/o DVT) - Follow Up Care Current Providers and Referrals: Vik Aguilar MD [Medical Doctor] - As per Instructions Brennen Negrete MD [Medical Doctor] - As per Instructions Patient,NotPresent [Unknown] - As per Instructions
--- NOTE | 2017-09-02 12:50 | ASMTCMCOM ---
CM Note CM Note Notes: Patient medically cleared for dc per hospital Medicine. Orders sent via allscripts. [facility] to transport via stretcher. Patient is agreeable. Message left with her son. CM available to if other needs arise. Date Signed: 09/02/2017 12:50 PM Electronically Signed By:Brenda Thomas RN
[2017-09-02] MEDS: ACETAMINOPHEN 325 MG TAB PO PRN (14:52)
--- NOTE | 2017-09-02 17:20 | ASDISCHSUM ---
Discharge Information Plan Status:SNF Medically Cleared to Leave:09/01/2017 Discharge Date:09/02/2017 03:14 PM D/C Disposition:Detention Facility ADT D/C Disposition:Detention Facility Projected Discharge Date:09/02/2017 11:00 AM Transportation at D/C:Wheelchair Van Discharge Delay Reason: Follow-Up Date:09/02/2017 11:00 AM Discharge Slot: Final Diagnosis: Placement Information Referral Type:*Longterm/SNF Referral ID:[id number] Provider Name:[facility] Address 1:[address] Address 2: City:[place] Selection Factors: State:[place] Patient Contact Information Contact Name:HERB Relationship:Son Address: City: [facility] Phone: [facility]/Zip Code: Email: Financial Information Financial Class: Primary Plan Desc:MEDICARE INPATIENT Primary Plan Number:[id number] [facility] Secondary Plan Number:[id number] Assessment Information [facility] CM Progress Note CM Note CM Note Notes: Pt admitted after fall at home, reports she had drank 2-3 glasses of vodka prior. Pt reports almost daily ETOH use, yesterday BRODERICK Quinonez states pt expressed wanting to treat this substance use. Provided pt ETOH resources. Spoke with pt regarding Dr. Penelope ritter for SNF (PT/OT nova pending), pt in agreement she needs SNF, has been to [facility] and [facility] in the past. Pt refuses to go to again and ideally would stay in [place]. Pt #1 choice is [facility], #2 [facility] and #3 [facility]; referrals sent to each. Pt has depression and anxiety, PASRR does not trigger. D/c plan of care: SNF when medically stable, TBD which SNF Date Signed: 08/30/2017 04:52 PM Electronically Signed By:DAKOTA Adler [facility] CM Progress Note CM Note CM Note Notes: Met with patient to review dc POC. She is dissapointed that [facility] has a bed. She is strongly hoping for [facility]. She lives with an adult son. Has good insight to association of depression and self medication with alcohol. She states she is ready to quit and has made proclamation to her friends and family. Emotional support provided. CM to follow. CM Note Pt admitted after fall at home, reports she had drank 2-3 glasses of vodka prior. Pt reports almost daily ETOH use, yesterday BRODERICK Quinonez states pt expressed wanting to treat this substance use. Provided pt ETOH resources. Spoke with pt regarding Dr. Penelope ritter for SNF (PT/OT nova pending), pt in agreement she needs SNF, has been to [facility] and [facility] in the past. Pt refuses to go to again and ideally would stay in [place]. Pt #1 choice is [facility], #2 [facility] and #3 [facility]; referrals sent to each. Pt has depression and anxiety, PASRR does not trigger. D/c plan of care: SNF when medically stable, TBD which SNF Date Signed: 09/01/2017 02:53 PM Electronically Signed By:Brenda Thomas RN LACE LACE Length of stay for Answers: 3 days current admission Acuity / Level of Care Answers: Was the patient admitted to hospital via the emergency department? Yes: Emergency dept visits in Answers: 1 last 6 months Score: 7 Date Signed: 09/01/2017 02:56 PM Electronically Signed By:Brenda Thomas RN [facility] CM Progress Note CM Note CM Note Notes: Patient medically cleared for dc per hospital Medicine. Orders sent via allMetaStat. [facility] to transport via stretcher. Patient is agreeable. Message left with her son. CM available to if other needs arise. Date Signed: 09/02/2017 12:50 PM Electronically Signed By:Brenda Thomas RN Intervention Information Intervention Type:*IM-Signed Date of Service:09/02/2017 01:48 PM Patient Type:Inpatient Staff Member:Tabitha Lane Hours: Discipline: Severity: Comment:
--- NOTE | 2017-09-03 05:04 | GDS ---
[f rep st] DISCHARGE SUMMARY DISCHARGE DIAGNOSES: 1. Right tibial plateau fracture. 2. Left patellar dislocation. 3. History of deep venous thrombosis. 4. Alcohol abuse. 5. Hypertension. 6. Depression. 7. Hypoxia due to atelectasis from hypoventilation. 8. Methicillin-resistant Staphylococcus aureus colonization. 9. History of gastric bypass surgery. HISTORY: The patient is a 67-year-old female who fell. Alcohol intoxication may have played a part. She sustained a right tibial plateau fracture. She has a known chronic left patellar dislocation. She was scheduling an elective right total knee arthroplasty prior to falling and fracturing this ti bial plateau. This complicates her situation. The plan is for her to be nonweightbearing for 8-12 w eeks to initiate healing with eventual total knee arthroplasty on that side. Unfortunately her good leg is the left one where she has a chronic patellar dislocation which causes her a lot of pain and t hat also needs to be immobilized when she is up. She has underlying severe osteoporosis which should be addressed as an outpatient. She also has a history of DVT there were concerns with her prolonged immobility so she will be maintained on indefinite Lovenox prophylaxis until she is more mobile. She was drinking heavily until presentation. She did not have significant withdrawal during this hos pitalization. She is going for a prolonged visit to a prison facility which will situationa lly decrease her ability to drink heavily. Son is also concerned about her poor oral intake and she has a past gastric bypass surgery. Her dietary needs should continue to be addressed. DISCHARGE MEDICATIONS: Please see computerized record for a full detailed list. New medications: 1. Calcium 500 mg p.o. b.i.d. 2. Vitamin D3 2000 units p.o. daily. 3. Lovenox 40 mg subcu daily. 4. Oxycodone 5-10 mg p.o. q.4 hours as needed. ADDITIONAL DISCHARGE INSTRUCTIONS: 1. Contact isolation for MRSA colonization. 2. Nonweightbearing to the right leg for 8-12 weeks. 3. Immobilizer to the left knee when out of bed. 4. Continue Lovenox until increased mobility as she has a history of DVT. 5. Follow up Dr. Brennen Negrete. 6. Transfer to [facility] for further rehabilitation. Greater than 30 minutes' time was spent arranging this discharge. Patient seen and examined by me on the day of discharge. /[id number]/MODL
== END 2017-09-02 15:14 | DRG 563 ==
LOC: EDUNIT# → EDBD → F3N 08:43 → OBSVTOIN 10:51 → F3N 08-31 10:13
PROVIDERS: ADMIT Student in an Organized Health Care Education/Training Program; ATTEND Student in an Organized Health Care Education/Training Program
DX: S82.141A Displaced bicondylar fracture of right tibia, initial encounter for closed fracture (principal); J98.11 Atelectasis; W01.0XXA Fall on same level from slipping, tripping and stumbling without subsequent striking against object, initial encounter; M22.02 Recurrent dislocation of patella, left knee; I10 Essential (primary) hypertension; F32.9 Major depressive disorder, single episode, unspecified; R09.02 Hypoxemia; B95.62 Methicillin resistant Staphylococcus aureus infection as the cause of diseases classified elsewhere; Y92.018 Other place in single-family (private) house as the place of occurrence of the external cause; M81.0 Age-related osteoporosis without current pathological fracture; F10.920 Alcohol use, unspecified with intoxication, uncomplicated; Z23 Encounter for immunization; Y90.6 Blood alcohol level of 120-199 mg/100 ml; Z86.718 Personal history of other venous thrombosis and embolism; Z96.642 Presence of left artificial hip joint; Z95.4 Presence of other heart-valve replacement
CPT/HCPCS: 92523-GN; 97116-GP; 97163-GP; 97166-GO; 97530-GO; 97530-GP; 97535-GO; G0008; G0480; G8978-GP-CM; G8979-GP-CK; G8987-GO-CM; G8988-GO-CJ; G9168-GN-CK; G9169-GN-CI; J1650; J2060; J3010; J3411; L1830; Q9967

== ENCOUNTER → 2017-12-26 | Outpatient (CLI) | payer OTHER | LOC: FIMAGING 13:01 | PROVIDERS: ATTEND Orthopaedic Surgery | DX: S82.101D Unspecified fracture of upper end of right tibia, subsequent encounter for closed fracture with routine healing (principal); M17.11 Unilateral primary osteoarthritis, right knee ==

== ENCOUNTER 2017-12-31 05:50 | Inpatient (IN) | payer OTHER ==
[2017-12-26 14:01] LABS: PLATELET COUNT 310 10^3/uL (150-400)
--- NOTE | 2017-12-27 11:18 | CPEKG ---
Heart Rate: 69 RR Interval: 870 P-R Interval: 176 QRSD Interval: 90 QT Interval: 464 QTC Interval: 497 P [place]: 73 QRS [place]: -58 T Wave [place]: 45 EKG Severity - ABNORMAL ECG - EKG Impression: SINUS RHYTHM EKG Impression: VENTRICULAR PREMATURE COMPLEX EKG Impression: LEFT ANTERIOR FASCICULAR BLOCK Electronically Signed By: Mariano Curran 27-Dec-2017 12:27:13
--- NOTE | 2017-12-30 15:36 | GHP ---
[f rep st] PREOP HISTORY AND PHYSICAL DATE OF ADMISSION: 12/31/2017 DATE OF PLANNED PROCEDURE: 12/31/2017 HISTORY OF PRESENT ILLNESS: The patient is a 67-year-old female who had a slip and fall back in August and sustained a complex tibial plateau fracture. Due to her poor bone quality, we treated this nonoperatively, allowed the bone to consolidate. She was initially in a [facility] facility. She has since gone home. Repeat CT scan shows that the bone has healed sufficiently to allow us to proceed with a total knee arthroplasty on the right. PRIOR MEDICAL HISTORY: Mitral regurgitation. Coronary artery disease. Depression. Hypertension. PRIOR SURGICAL HISTORY: Cholecystectomy. Bilateral rotator cuff repairs. Open reduction, internal fixation to her wrist. Bilateral hip fractures, treated with intramedullary nailing. Gastric bypass surgery. MEDICATIONS: Furosemide. Quetiapine. Spironolactone. ALLERGIES: Morphine and tramadol. SOCIAL HISTORY: She lives independently. She does have a son who is local and does assist her. Does not smoke. She is an alcoholic who has recently undergone treatment for that and, per her report, has stopped drinking. REVIEW OF SYSTEMS: No shortness of breath or chest pain. Otherwise, review of systems, is unremarkable. PHYSICAL EXAMINATION: VITAL SIGNS: She is 5 feet 5 inches tall, weighs 170 pounds. Blood pressure is 123/70, heart rate 74, respiratory rate 16 on room air. GENERAL: Alert and oriented x3. HEENT: Normocephalic, atraumatic. Extraocular muscles are intact. NECK: Supple. There is no lymphadenopathy. No JVD. CHEST: Clear to auscultation. CARDIOVASCULAR: Regular rate and rhythm. ABDOMEN: Soft, nontender, nondistended. EXTREMITIES: She has valgus alignment of both knees. She is status post a left total knee replacement. There is no significant effusion or warmth. She is tender over the lateral tibial plateau. She hyperextends about 5 degrees, flexes to 125 degrees. Knee is stable to varus and valgus stress testing. I can correct her valgus deformity passively. Calf is soft. 1+ Giuseppe with a firm endpoint. Negative posterior drawer. IMAGING: Both plain films and CT scan are reviewed. She has severe degenerative arthritis in the knee with a valgus deformity and a depression fracture of the lateral tibial plateau. ASSESSMENT: Lateral tibial plateau fracture with valgus deformity and severe osteoarthritis. PLAN: Long discussion with the patient. She is ready to proceed with a total knee arthroplasty on the right. We will use the [employer] robot for this. I will have Dr. Guido Joya's assistance with the robot. Plan on surgery Saturday. Risks and benefits of the surgery, including the need for additional surgery on this knee, blood clots, infection, stroke risk were all discussed. She understands these risks and wishes to proceed. /[id number]/MODL MTDD
[2017-12-31] MEDS ORDERED: ceFAZolin 2 GM/SWFI 2 GM/20 ML SYR IVP ONE (06:06)
[2017-12-31] MEDS ORDERED: LIDOCAINE 1% 2 ML INJ ID PRN (06:12)
[2017-12-31] MEDS ORDERED: LR 1,000 ML IV ONE (06:12)
[2017-12-31] MEDS ORDERED: VANCOMYCIN HCL/NORMAL SALINE 250 ML IV ONE (06:30)
--- NOTE | 2017-12-31 06:47 | PDHPUP ---
History & Physical Update H&P update statement: This history and physical update is based on an assessment of the patient which was completed after admission or registration (within 24 hours), but prior to the surgery/procedure. H&P update: H&P reviewed & patient examined, no change in patient's condition since H&P completed
[2017-12-31] MEDS ORDERED: ceFAZolin 1 GM/5 ML SYR ONE (06:55)
[2017-12-31] MEDS ORDERED: MIDAZOLAM 2 MG/2 ML VIAL ONE (07:12)
--- NOTE | 2017-12-31 07:12 | PDANEPAE ---
ANE History of Present Illness Knee OA ANE Past Medical History - Cardiovascular History Hx Hypertension: Yes Hx Arrhythmias: Yes Hx Chest Pain: No Hx Coronary Artery / Peripheral Vascular Disease: No Hx CHF / Valvular Disease: No Hx Palpitations: No Cardiovascular History Comment: hx of htn- pt denies having now. heart murmur. mitral regurg. hx of dvt. 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 excercise induced asthma- doesn't have inhaler - Neurologic History Hx Cerebrovascular Accident: No Hx Seizures: No Hx Dementia: No - Endocrine History Hx Diabetes: No - Renal History Hx Renal Disorders: No - Liver History Hx Hepatic Disorders: No - Neurological & Psychiatric Hx Hx Neurological and Psychiatric Disorders: Yes Neurological / Psychiatric History Comment: depression. hx of etoh abuse - Cancer History Hx Cancer: No - Congenital Disorder History Hx Congenital Disorders: No - GI History Hx Gastrointestinal Disorders: No - Other Health History Other Health History: wears reading glasses. has temporary dental work in place but it is solid per pt - Chronic Pain History Chronic Pain: Yes (bilateral knees) - Surgical History Prior Surgeries: bilateral hip. bilateral rtc. left wrist surgery. gastric bypass. zhanna. c-sections. cataracts ANE Review of Systems Review of Systems: - Exercise capacity METS (RN): 3 METS ANE Patient History - Allergies Allergies/Adverse Reactions: alendronate sodium [From Fosamax] Allergy (Verified 12/25/17 14:00) it's been so long since i've had it- caused heavy heart hydromorphone HCl [From Dilaudid] Allergy (Verified 12/25/17 14:00) Itching morphine [Morphine] Allergy (Verified 12/25/17 14:00) Itching HAYFEVER Allergy (Mild, Uncoded 12/25/17 14:00) SNEEZING, RUNNY NOSE - Home Medications Home Medications: Citalopram Hydrobromide [Citalopram HBr 40 MG] 40 mg PO HS 09/30/13 [Last Taken 12/30/17] Cyanocobalamin [Vitamin B12 (*)] 1,000 mcg PO DAILY 09/30/13 [Last Taken ] Herbals/Supplements -Info Only 1 each PO AD 09/30/13 [Last Taken 12/27/17] Spironolactone [Aldactone 25 MG (*)] 25 mg PO HS 09/30/13 [Last Taken 12/30/17] QUEtiapine FUMARATE [Seroquel 25 mg (*)] 25 mg PO HS 01/07/14 [Last Taken ] Multivitamins [Multivitamin (*)] 1 each PO DAILY 08/29/17 [Last Taken 12/27/17] Ascorbic Acid [Vitamin C 500 mg (*)] 500 mg PO DAILY 12/24/17 [Last Taken ] Aspirin [Aspirin 81mg (*)] 81 mg PO DAILY 12/24/17 [Last Taken 12/26/17] Denosumab [Prolia] 60 mg SQ .[id number] 12/24/17 [Last Taken 04/19/17] Diazepam [Valium 5 MG (*)] 5 mg PO DAILY PRN 12/24/17 [Last Taken 12/31/17 04:30 ] Furosemide [Lasix 40 MG (*)] 40 mg PO DAILY 12/24/17 [Last Taken 12/30/17] oxyCODONE/APAP 5/325 [Percocet 5/325 (*)] 1 tab PO DAILY PRN 12/24/17 [Last Taken 12/31/17 04:30] - NPO status NPO Since - Liquids (Date): 12/31/17 NPO Since - Liquids (Time): 04:30 NPO Since - Solids (Date): 12/30/17 NPO Since - Solids (Time): 22:00 - Smoking Hx Smoking Status: Former smoker - Family Anes Hx Family Hx Anesthesia Complications: father used to wake up very beligerant ANE Labs/Vital Signs - Labs Result Diagrams: 12/26/17 13:13 12/26/17 13:13 - Vital Signs Blood Pressure: 144/71 Heart Rate: 72 Respiratory Rate: 16 O2 Sat (%): 94 Height: 167.64 cm Weight: 77.111 kg ANE Physical Exam - Airway Neck exam: FROM Mallampati Score: Class 1 Mouth exam: normal dental/mouth exam - Pulmonary Pulmonary: no respiratory distress - Cardiovascular Cardiovascular: regular rate and rhythym - ASA Status ASA Status: III ANE Anesthesia Plan Anesthesia Plan: MAC, spinal Regional Anesthesia: adductor canal FNB
[2017-12-31] MEDS ORDERED: PROPOFOL/EMULSION 500 MG/50 ML BOTTLE IV ONE ×2 (07:18→08:48)
[2017-12-31] MEDS ORDERED: fentaNYL 100 MCG/2 ML INJ ONE (07:18)
[2017-12-31] MEDS ORDERED: BUPIVACAINE/EPI 0.5% 30 ML SDV ONE (07:20)
[2017-12-31] MEDS ORDERED: LIDOCAINE 2% 5 ML SDV ONE (07:21)
[2017-12-31] MEDS ORDERED: THROMBIN (BOVINE) 5,000 UNIT VIAL TP ONE (08:33)
[2017-12-31] MEDS ORDERED: CALCIUM CHLORIDE 1 GM/10 ML INJ ONE (08:33)
[2017-12-31] MEDS ORDERED: ROPIVACAINE HCL 150 MG/30 ML INJ ONE (08:39)
[2017-12-31] MEDS ORDERED: ONDANSETRON 4 MG/2 ML VIAL IVP PRN ×2 (10:02→10:45)
[2017-12-31] MEDS ORDERED: NALOXONE HCL 0.4 MG/ML INJ IVP PRN (10:02)
[2017-12-31] MEDS ORDERED: fentaNYL 100 MCG/2 ML INJ IVP PRN (10:02)
--- NOTE | 2017-12-31 10:44 | POSTOPPROG ---
Post Op Note Date of Operation: 12/31/17 Surgeon: Brennen Negrete Jewelry Finisher: Esteban Joya MD Anesthesiologist: Zana Anesthesia: Spinal Pre-op Diagnosis: OA rt knee, valgus alignment, impacted tibial platea fx Post-op Diagnosis: same Procedure: RT TKA Inf/Abcess present in the surg proc area at time of surgery?: No EBL: 50-100 Complications: none
[2017-12-31] MEDS ORDERED: MAGNESIUM HYDROXIDE 30 ML UDCUP PO PRN (10:45)
[2017-12-31] MEDS ORDERED: BISACODYL 10 MG SUPP PR PRN (10:45)
[2017-12-31] MEDS ORDERED: PROMETHAZINE HCL 25 MG SUPPR PR PRN (10:45)
[2017-12-31] MEDS ORDERED: METOCLOPRAMIDE 10 MG/2 ML VIAL IVP PRN (10:45)
[2017-12-31] MEDS ORDERED: TEMAZEPAM 15 MG CAP PO PRN (10:45)
[2017-12-31] MEDS ORDERED: POLYETHYLENE GLYCOL 3350 17 GM PKT PO PRN (10:45)
[2017-12-31] MEDS ORDERED: LACTULOSE 20 GM/30 ML UDCUP PO PRN (10:45)
[2017-12-31] MEDS ORDERED: diphenhydrAMINE 25 MG CAP PO PRN (10:45)
[2017-12-31] MEDS ORDERED: PROMETHAZINE HCL 25 MG/ML INJ IVP PRN (10:45)
[2017-12-31] MEDS ORDERED: DIPHENOXYLATE/ATROPINE LOMOTIL 1 TAB PO PRN (10:45)
[2017-12-31] MEDS ORDERED: ONDANSETRON DISINTEGRATING 4 MG TAB PO PRN (10:45)
--- NOTE | 2017-12-31 10:47 | POSTANESTH ---
Post Anesthetic Evaluation Cardiovascular Status: Normal, Stable Respiratory Status: Normal, Stable Level of Consciousness/Mental Status: Can Participate in Eval Pain Control: Adequate, Prn Tx Ordered Nausea/Vomiting Control: Adequate, Prn Tx Ordered Complications Possibly Related to Anesthesia: None Noted (Adductor canal block done in PACU, for POPM per surgeon request. No complications noted.)
[2017-12-31] MEDS ORDERED: DIAZEPAM 5 MG TAB PO PRN (10:51)
[2017-12-31] MEDS ORDERED: LR 1,000 ML IV SCH (11:00)
--- NOTE | 2017-12-31 11:35 | GOP ---
[f rep st] OPERATIVE REPORT DATE OF OPERATION: 12/31/2017 SURGEON: Brennen Negrete MD COMMISSIONS SPECIALIST: Esteban Joya MD. ANESTHESIA: Spinal with monitored anesthesia care. ANESTHESIOLOGIST: Dr. Spann. PREOPERATIVE DIAGNOSIS: Severe osteoarthritis, right knee with valgus deformity and a tibial plateau fracture with lateral tibial plateau defect. POSTOPERATIVE DIAGNOSIS: Severe osteoarthritis, right knee with valgus deformity and a tibial platea u fracture with lateral tibial plateau defect. PROCEDURE PERFORMED: Total knee arthroplasty on the right with Vasyl Surgical guidance. FINDINGS: DESCRIPTION OF PROCEDURE: After appropriate informed consent was obtained the patient was taken to [facility] operating room, placed supine on the operating table. Time-out was performed. Patient was identi fied, correct site was identified, matched with the radiographs and CT scans that were available. Israel ramirez received a g of Vancomycin due to her previous MRSA colonization. The right lower extremity was pr epped and draped in usual sterile fashion. We then placed our tibial array pins, confirmed its posit ion with the Vasyl system. We then exsanguinated the limb, inflated the tourniquet to 275 mmHg. We m coreen our standard midline incision with a medial parapatellar arthrotomy. The patella was everted, re maining fat pad was removed. We then placed our femoral array pins, confirmed its position with the Vasyl system. We then placed our secondary check pin both in the femur and the tibia and confirmed it s position. We removed remaining medial lateral meniscus, flexed the knee up. We then mapped both [facility] femur and the tibia, confirmed its position with the Vasyl system and then using the Vasyl system ma de our distal femoral cuts followed by our tibial cut. We then sized the tibia to a 5, keel punched that, pinned it in place and with a CR femur we trialed the knee. The 9 poly gave a little hyperexte nsion. We upsized to an 11 with good extension, good medial lateral stability. We then removed the trial implants after we had drilled our tibia and then we made our box femoral cut. We then turned o ur attention to the patella. It measured about 24 mm thick. We resected 10 mm off leaving 13 mm of thickness. This sized to a size 35 asymmetric. We drilled our lug holes. The knee was irrigated. We then on the back table mixed our cement and then cemented our tibia followed by our femur and sandra lla. Excess cement was removed. While the cement cured we had our trial 11 poly in there. When the cement had dried, removed the trial 11 poly, placed our final 11 poly, tapped it in place. Again go od extension, good medial and lateral stability. The wound was irrigated a final time. The extensor mechanism was closed with 0 Vicryl. I instilled 10 mL of PRP gel over the cut ends of bone and 30 m L of 0.5% Marcaine with epinephrine in the knee joint for postoperative analgesia. Superficial layer s closed with 2-0 Vicryl. Skin was closed with benito. Sterile dressing was applied. The patient was awakened from anesthesia, taken to the recovery room in satisfactory condition. There were no im mediate intraoperative complications. COMPLICATIONS: None. DRAINS: None. TOTAL TOURNIQUET TIME: 90 minutes at 275 mmHg. HISTORY: The patient is a 67-year-old female, who has severe osteoarthritis of her right knee with v algus deformity who sustained a fall back in August and sustained a depressed tibial plateau fractu re. It was decided at that point for non-operative intervention to allow the bone to heal and consol idate and then proceed with a total knee arthroplasty once the bone had healed. On repeat CT scan we then brought her to the operating room for a total knee arthroplasty. /[id number]/MODL
[2017-12-31] MEDS: KETOROLAC 30 MG/1 ML SDV IVP PRN (12:49)
[2017-12-31] MEDS: oxyCODONE IR 5 MG TAB PO PRN ×2 (12:52→21:18)
[2017-12-31] MEDS: ACETAMINOPHEN 325 MG TAB PO SCH ×2 (12:52→18:14)
[2017-12-31] MEDS: CYCLOBENZAPRINE 10 MG TAB PO PRN (12:53)
[2017-12-31] MEDS ORDERED: VANCOMYCIN HCL/NORMAL SALINE 250 ML IV SCH (19:00)
[2017-12-31] MEDS ORDERED: CITALOPRAM HYDROBROMIDE 40 MG PO SCH (21:00)
[2017-12-31] MEDS: SENNOSIDES/DOCUSATE SODIUM TAB PO SCH (21:19)
[2017-12-31] MEDS: CITALOPRAM 20 MG TAB PO SCH (21:19)
[2017-12-31] MEDS: SPIRONOLACTONE 25 MG TAB PO SCH (21:20)
[2017-12-31] MEDS: FAMOTIDINE 20 MG TAB PO SCH (21:20)
[2018-01-01] MEDS: ACETAMINOPHEN 325 MG TAB PO SCH ×5 (00:37→23:15)
[2018-01-01] MEDS: oxyCODONE IR 5 MG TAB PO PRN ×4 (05:06→23:19)
[2018-01-01] MEDS: FAMOTIDINE 20 MG TAB PO SCH ×2 (08:19→20:39)
[2018-01-01] MEDS: CYANO/VITAMIN B12 1000 MCG TAB PO SCH (08:19)
[2018-01-01] MEDS: RIVAROXABAN 10 MG TAB PO SCH (08:20)
[2018-01-01] MEDS: FUROSEMIDE 40 MG TAB PO SCH (08:20)
[2018-01-01] MEDS: SENNOSIDES/DOCUSATE SODIUM TAB PO SCH ×2 (08:20→20:38)
[2018-01-01] MEDS: KETOROLAC 30 MG/1 ML SDV IVP PRN (11:42)
[2018-01-01] MEDS: CYCLOBENZAPRINE 10 MG TAB PO PRN (14:28)
--- NOTE | 2018-01-01 15:03 | PDMN ---
Medical Necessity Medical necessity: change to IP; los>2mn s/p R TKA, unsafe to d/c to home alone ; requires continued inpatient PT/OT for decreased mobility and activity tolerance, L knee instability, with hx of falls, multiple orthopedic fx's; comorbid MR, CAD, and HTN; per order and statement of med necessity 01/01/18
--- NOTE | 2018-01-01 16:45 | ASMTCMCOM ---
CM Note CM Note Notes: Pt s/p R total knee PT/OT rec SNF. Pt requests referral to [facility], [facility] accepts pt. D/c plan of care: [facility] SNF when medically stable. Date Signed: 01/01/2018 04:44 PM Electronically Signed By:DAKOTA Adler
[2018-01-01] MEDS: SPIRONOLACTONE 25 MG TAB PO SCH (20:39)
[2018-01-01] MEDS: CITALOPRAM 20 MG TAB PO SCH (20:39)
[2018-01-02] MEDS: ACETAMINOPHEN 325 MG TAB PO SCH ×3 (06:01→17:48)
[2018-01-02] MEDS: oxyCODONE IR 5 MG TAB PO PRN ×3 (06:05→22:11)
--- NOTE | 2018-01-02 08:50 | SOAPPROG ---
SOAP Progress Note Assessment/Plan: Assessment: Plan: 01/02/18 08:50 POD#2 RT TKA [facility] Saturday poss xarelto Subjective: doing better Today Objective: dressing changed yesterday c/d/i calf soft 5/5 df/pf Vital Signs Temp Pulse Resp BP Pulse Ox 36.8 C 80 16 123/59 H 93 01/02/18 04:00 01/02/18 04:00 01/02/18 04:00 01/02/18 04:00 01/02/18 04:00 Laboratory Results 01/02/18 05:36 12/26/17 13:13 01/01/18 01/02/18 01/03/18 05:59 05:59 05:59 Intake Total 2530 1750 Output Total 900 600 Balance 1630 1150 ICD10 Worksheet Patient Problems: Problems Problem Status Onset Alcohol abuse Active Benign essential hypertension Active Falls Active Fracture of neck of femur Active Mitral valve regurgitation Active Alcohol intoxication Acute Contusion, knee Acute Fall Acute Hematoma Acute MRSA (methicillin resistant Staphylococcus aureus) Acute ~04/16/17
[2018-01-02] MEDS: FUROSEMIDE 40 MG TAB PO SCH (09:35)
[2018-01-02] MEDS: CYANO/VITAMIN B12 1000 MCG TAB PO SCH (09:35)
[2018-01-02] MEDS: FAMOTIDINE 20 MG TAB PO SCH ×2 (09:35→20:43)
[2018-01-02] MEDS: RIVAROXABAN 10 MG TAB PO SCH (09:36)
[2018-01-02] MEDS: SENNOSIDES/DOCUSATE SODIUM TAB PO SCH ×2 (09:36→20:44)
[2018-01-02] MEDS: KETOROLAC 30 MG/1 ML SDV IVP PRN (15:16)
[2018-01-02] MEDS: SPIRONOLACTONE 25 MG TAB PO SCH (20:43)
[2018-01-02] MEDS: CITALOPRAM 20 MG TAB PO SCH (20:44)
[2018-01-03] MEDS: ACETAMINOPHEN 325 MG TAB PO SCH ×4 (00:01→17:15)
[2018-01-03] MEDS: oxyCODONE IR 5 MG TAB PO PRN ×3 (05:23→15:47)
[2018-01-03] MEDS: CYCLOBENZAPRINE 10 MG TAB PO PRN (06:43)
[2018-01-03] MEDS: CYANO/VITAMIN B12 1000 MCG TAB PO SCH (08:45)
[2018-01-03] MEDS: FAMOTIDINE 20 MG TAB PO SCH ×2 (08:45→20:42)
[2018-01-03] MEDS: SENNOSIDES/DOCUSATE SODIUM TAB PO SCH ×2 (08:45→20:42)
[2018-01-03] MEDS: FUROSEMIDE 40 MG TAB PO SCH (08:46)
[2018-01-03] MEDS: RIVAROXABAN 10 MG TAB PO SCH (08:46)
--- NOTE | 2018-01-03 10:51 | SOAPPROG ---
SOAP Progress Note Assessment/Plan: Assessment: Plan: 01/02/18 08:50 POD#2 RT TKA [facility] Saturday [place] [place] 01/03/18 10:51 Xarelyunior PT/OT [facility] Subjective: fell this am in bathroom did not hit head or knee feeling ok now Objective: dressing with small amount bloody drainage calf soft 5/5 df/pf 2+ dp/tp pulses Vital Signs Temp Pulse Resp BP Pulse Ox 36.7 C 86 14 101/64 97 01/03/18 07:58 01/03/18 07:58 01/03/18 07:58 01/03/18 07:58 01/03/18 07:58 Laboratory Results 01/02/18 05:36 12/26/17 13:13 01/02/18 01/03/18 01/04/18 05:59 05:59 05:59 Intake Total 1750 450 Output Total 600 500 Balance 1150 -50 ICD10 Worksheet Patient Problems: Problems Problem Status Onset chronic disease mgmt/ transitional care Acute Alcohol abuse Active Benign essential hypertension Active Falls Active Fracture of neck of femur Active Mitral valve regurgitation Active Alcohol intoxication Acute Contusion, knee Acute Fall Acute Hematoma Acute MRSA (methicillin resistant Staphylococcus aureus) Acute ~04/16/17
--- NOTE | 2018-01-03 10:58 | PDIAF ---
- Diagnosis Code Status: Full Code - Medication Management Discharge Medications: Medications to Continue on Transfer Citalopram Hydrobromide [Citalopram HBr 40 MG] 40 mg PO HS 09/30/13 [Last Taken 12/30/17] Cyanocobalamin [Vitamin B12 (*)] 1,000 mcg PO DAILY 09/30/13 [Last Taken ] Herbals/Supplements -Info Only 1 each PO AD 09/30/13 [Last Taken 12/27/17] Spironolactone [Aldactone 25 MG (*)] 25 mg PO HS 09/30/13 [Last Taken 12/30/17] QUEtiapine FUMARATE [Seroquel 25 mg (*)] 25 mg PO HS 01/07/14 [Last Taken ] Multivitamins [Multivitamin (*)] 1 each PO DAILY 08/29/17 [Last Taken 12/27/17] Cholecalciferol Vit D3 [Vitamin D3 2000 units tab (OTC)] 2,000 units PO DAILY # 30 each 09/02/17 [Last Taken 12/27/17] Ascorbic Acid [Vitamin C 500 mg (*)] 500 mg PO DAILY 12/24/17 [Last Taken ] Denosumab [Prolia] 60 mg SQ [id number] 12/24/17 [Last Taken 04/19/17] Diazepam [Valium 5 MG (*)] 5 mg PO DAILY PRN 12/24/17 [Last Taken 12/31/17 04:30 ] Furosemide [Lasix 40 MG (*)] 40 mg PO DAILY 12/24/17 [Last Taken 12/30/17] oxyCODONE/APAP 5/325 [Percocet 5/325 (*)] 1 tab PO DAILY PRN 12/24/17 [Last Taken 12/31/17 04:30] Rivaroxaban [Xarelto 10mg (*)] 10 mg PO DAILY #21 tab 01/03/18 [Last Taken Unknown] oxyCODONE IR [Oxycodone Ir (*)] 5 - 10 mg PO Q3HRS PRN #40 tab 01/03/18 [Last Taken Unknown] Group Home Antibiotics: no Discharge Medications: Refer to the Discharge Home Medication list for PRN reason. - Orders Services needed: Physical Therapy, Occupational Therapy Isolation Type: Contact Isolation Diet Recommendation: no restrictions on diet Diet Texture: Regular Texture Diet Wound Care Instructions: keep wound clean and dry Sutures/Amy Site: RT knee Activity/Weight Bearing Restrictions: WBAT - Follow Up Care Current Providers and Referrals: Milvia Oliva MD [Primary Care Provider] -
--- NOTE | 2018-01-03 11:48 | ASMTCMCOM ---
CM Note CM Note Notes: Updates sent to [facility], pt likely d/c tomorrow. D/c plan of care: [facility] when medically stable Date Signed: 01/03/2018 11:47 AM Electronically Signed By:DAKOTA Adler
[2018-01-03] MEDS: CITALOPRAM 20 MG TAB PO SCH (20:43)
[2018-01-03] MEDS: SPIRONOLACTONE 25 MG TAB PO SCH (20:44)
[2018-01-04] MEDS: ACETAMINOPHEN 325 MG TAB PO SCH ×4 (00:33→17:51)
[2018-01-04] MEDS: oxyCODONE IR 5 MG TAB PO PRN ×4 (04:41→21:46)
[2018-01-04] MEDS: SENNOSIDES/DOCUSATE SODIUM TAB PO SCH ×2 (08:23→21:12)
[2018-01-04] MEDS: RIVAROXABAN 10 MG TAB PO SCH (08:23)
[2018-01-04] MEDS: FAMOTIDINE 20 MG TAB PO SCH ×2 (08:23→21:12)
[2018-01-04] MEDS: CYANO/VITAMIN B12 1000 MCG TAB PO SCH (08:24)
[2018-01-04] MEDS: FUROSEMIDE 40 MG TAB PO SCH (08:24)
--- NOTE | 2018-01-04 08:59 | SOAPPROG ---
SOAP Progress Note Assessment/Plan: Assessment: Plan: 01/02/18 08:50 POD#2 RT TKA [facility] [place] 01/03/18 10:51 Xarelto PT/OT [facility] 01/04/18 08:59 check xray prior to [facility] to [facility] Today Subjective: more sore rt knee after fall yesterday Objective: dressing c/d/i calf soft bruising ant/mrdial lower leg 5/5 df/pf Vital Signs Temp Pulse Resp BP Pulse Ox 37.1 C 69 18 103/51 L 96 01/04/18 06:47 01/04/18 06:47 01/04/18 06:47 01/04/18 06:47 01/04/18 06:47 Laboratory Results 01/02/18 05:36 12/26/17 13:13 01/03/18 01/04/18 01/05/18 05:59 05:59 05:59 Intake Total 450 650 Output Total 500 1250 Balance -50 -600 ICD10 Worksheet Patient Problems: Problems Problem Status Onset History of knee replacement Acute History of knee replacement Acute chronic disease mgmt/ transitional care Acute Alcohol abuse Active Benign essential hypertension Active Falls Active Fracture of neck of femur Active Mitral valve regurgitation Active Alcohol intoxication Acute Contusion, knee Acute Fall Acute Hematoma Acute MRSA (methicillin resistant Staphylococcus aureus) Acute ~04/16/17
[2018-01-04] MEDS: CYCLOBENZAPRINE 10 MG TAB PO PRN (10:30)
[2018-01-04] MEDS ORDERED: VANCOMYCIN HCL/NORMAL SALINE 250 ML IV ONE (11:25)
--- NOTE | 2018-01-04 11:41 | ASMTCMCOM ---
CM Note CM Note Notes: Patient was discharged this morning, and transport to [facility] was arranged; however, x-rays showed that she had a patellar tendon tear. Discharge was cancelled. Patient will go to OR tomorrow morning. She has notified her family. We will continue to update [facility] as to her probable EUGENIE. Date Signed: 01/04/2018 11:40 AM Electronically Signed By:Ruby Sumner RN
[2018-01-04] MEDS ORDERED: VANCOMYCIN 1 GM in NS 250 ML IV ONE (12:00)
[2018-01-04] MEDS: CITALOPRAM 20 MG TAB PO SCH (21:12)
[2018-01-04] MEDS: SPIRONOLACTONE 25 MG TAB PO SCH (21:12)
[2018-01-05] MEDS: ACETAMINOPHEN 325 MG TAB PO SCH ×4 (00:27→18:10)
[2018-01-05] MEDS: oxyCODONE IR 5 MG TAB PO PRN ×4 (00:31→22:22)
[2018-01-05] MEDS ORDERED: VANCOMYCIN 1 GM in NS 250 ML IV ONE (07:00)
[2018-01-05] MEDS ORDERED: BUPIVACAINE/EPI 0.5% 30 ML SDV ONE (07:49)
--- NOTE | 2018-01-05 08:09 | PDANEPAE ---
ANE History of Present Illness patellar tendon repair ANE Past Medical History - Cardiovascular History Hx Hypertension: Yes Hx Arrhythmias: Yes Hx Chest Pain: No Hx Coronary Artery / Peripheral Vascular Disease: No Hx CHF / Valvular Disease: No Hx Palpitations: No Cardiovascular History Comment: hx of htn- pt denies having now. heart murmur. mitral regurg. hx of dvt. 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 excercise induced asthma- doesn't have inhaler - Neurologic History Hx Cerebrovascular Accident: No Hx Seizures: No Hx Dementia: No - Endocrine History Hx Diabetes: No - Renal History Hx Renal Disorders: No - Liver History Hx Hepatic Disorders: No - Neurological & Psychiatric Hx Hx Neurological and Psychiatric Disorders: Yes Neurological / Psychiatric History Comment: depression. hx of etoh abuse - Cancer History Hx Cancer: No - Congenital Disorder History Hx Congenital Disorders: No - GI History Hx Gastrointestinal Disorders: No - Other Health History Other Health History: wears reading glasses. has temporary dental work in place but it is solid per pt - Chronic Pain History Chronic Pain: Yes (bilateral knees) - Surgical History Prior Surgeries: bilateral hip. bilateral rtc. left wrist surgery. gastric bypass. zhanna. c-sections. cataracts ANE Review of Systems Review of Systems: - Exercise capacity Exercise capacity: >=4 METS ANE Patient History - Allergies Allergies/Adverse Reactions: alendronate sodium [From Fosamax] Allergy (Verified 12/25/17 14:00) it's been so long since i've had it- caused heavy heart hydromorphone HCl [From Dilaudid] Allergy (Verified 12/25/17 14:00) Itching morphine [Morphine] Allergy (Verified 12/25/17 14:00) Itching HAYFEVER Allergy (Mild, Uncoded 12/25/17 14:00) SNEEZING, RUNNY NOSE - Home Medications Home Medications: Citalopram Hydrobromide [Citalopram HBr 40 MG] 40 mg PO HS 09/30/13 [Last Taken 12/30/17] Cyanocobalamin [Vitamin B12 (*)] 1,000 mcg PO DAILY 09/30/13 [Last Taken ] Herbals/Supplements -Info Only 1 each PO AD 09/30/13 [Last Taken 12/27/17] Spironolactone [Aldactone 25 MG (*)] 25 mg PO HS 09/30/13 [Last Taken 12/30/17] QUEtiapine FUMARATE [Seroquel 25 mg (*)] 25 mg PO HS 01/07/14 [Last Taken ] Multivitamins [Multivitamin (*)] 1 each PO DAILY 08/29/17 [Last Taken 12/27/17] Ascorbic Acid [Vitamin C 500 mg (*)] 500 mg PO DAILY 12/24/17 [Last Taken ] Denosumab [Prolia] 60 mg [id number] 12/24/17 [Last Taken 04/19/17] Diazepam [Valium 5 MG (*)] 5 mg PO DAILY PRN 12/24/17 [Last Taken 12/31/17 04:30 ] Furosemide [Lasix 40 MG (*)] 40 mg PO DAILY 12/24/17 [Last Taken 12/30/17] oxyCODONE/APAP 5/325 [Percocet 5/325 (*)] 1 tab PO DAILY PRN 12/24/17 [Last Taken 12/31/17 04:30] - NPO status NPO Since - Liquids (Date): 01/05/18 NPO Since - Liquids (Time): 00:01 NPO Since - Solids (Date): 01/05/18 NPO Since - Solids (Time): 00:01 - Anes Hx Anes Hx: no prior problems - Smoking Hx Smoking Status: Former smoker - Alcohol Use Alcohol Use: Sober - Family Anes Hx Family Hx Anesthesia Complications: father used to wake up very beligerant ANE Labs/Vital Signs - Labs Result Diagrams: 01/02/18 05:36 12/26/17 13:13 - Vital Signs Blood Pressure: 122/63 Heart Rate: 87 Respiratory Rate: 16 O2 Sat (%): 93 Height: 167.64 cm Weight: 77.11 kg ANE Physical Exam - Airway Neck exam: FROM Mallampati Score: Class 2 Mouth exam: normal dental/mouth exam - Pulmonary Pulmonary: no respiratory distress, clear to auscultation - Cardiovascular Cardiovascular: regular rate and rhythym, no murmur, rub, or gallop - ASA Status ASA Status: III ANE Anesthesia Plan Anesthesia Plan: GA with mask, spinal Regional Anesthesia: single shot NB, adductor canal FNB
[2018-01-05] MEDS ORDERED: MIDAZOLAM 2 MG/2 ML VIAL IVP ONE (08:13)
[2018-01-05] MEDS ORDERED: MIDAZOLAM 2 MG/2 ML VIAL ONE (08:15)
[2018-01-05] MEDS ORDERED: PROPOFOL/EMULSION 500 MG/50 ML BOTTLE IV ONE (08:21)
[2018-01-05] MEDS ORDERED: ROPIVACAINE HCL 150 MG/30 ML INJ ONE (09:06)
[2018-01-05] MEDS ORDERED: clonIDINE 1 MG/10 ML VIAL EP ONE (09:06)
--- NOTE | 2018-01-05 09:50 | POSTOPPROG ---
Post Op Note Date of Operation: 01/05/18 Surgeon: Brennen Negrete Anesthesiologist: Juanis Anesthesia: Spinal Pre-op Diagnosis: patellar tendon rupture Post-op Diagnosis: same Procedure: patellar tendon repair Findings: complete patellar tendon rupture Inf/Abcess present in the surg proc area at time of surgery?: No EBL: Minimal Complications: none
[2018-01-05] MEDS ORDERED: ALBUTEROL 3 ML DEYVIAL IH PRN (09:57)
[2018-01-05] MEDS ORDERED: ONDANSETRON 4 MG/2 ML VIAL IVP PRN (09:57)
[2018-01-05] MEDS ORDERED: fentaNYL 100 MCG/2 ML INJ IVP PRN (09:57)
[2018-01-05] MEDS ORDERED: NALOXONE HCL 0.4 MG/ML INJ IVP PRN (09:57)
[2018-01-05] MEDS ORDERED: ACETAMINOPHEN 500 MG TAB PO PRN (09:57)
[2018-01-05] MEDS ORDERED: OXYCODONE/APAP 5/325 TAB PO PRN (09:57)
--- NOTE | 2018-01-05 09:57 | POSTANESTH ---
Post Anesthetic Evaluation Cardiovascular Status: Normal, Stable, Similar to Pre-Op Cond Respiratory Status: Normal, Stable, Similar to Pre-op Cond. Level of Consciousness/Mental Status: Can Participate in Eval, Alert and Oriented Pain Control: Adequate, Prn Tx Ordered Nausea/Vomiting Control: Adequate, Prn Tx Ordered Complications Possibly Related to Anesthesia: None Noted
[2018-01-05] MEDS ORDERED: VANCOMYCIN HCL/NORMAL SALINE 250 ML IV SCH (10:00)
--- NOTE | 2018-01-05 10:12 | GOP ---
[f rep st] OPERATIVE REPORT DATE OF OPERATION: 01/05/2018 SURGEON: Brennen Negrete MD ANESTHESIA: Spinal with general. ANESTHESIOLOGIST: Dr. Olivarez. PREOPERATIVE DIAGNOSIS: Patellar tendon rupture status post total knee arthroplasty. POSTOPERATIVE DIAGNOSIS: Patellar tendon rupture status post total knee arthroplasty. PROCEDURE PERFORMED: Patellar tendon repair, right knee. FINDINGS: ESTIMATED BLOOD LOSS: Minimal. INDICATIONS: The patient is a 67-year-old female, who underwent a total knee arthroplasty of her rig ht knee on Saturday of this week. She was doing rehab, walking to the bathroom, and she was lowered t o the ground because she said her legs gave out. She was having knee pain afterwards. We obtained a n x-ray which showed displacement of the patella with a suspected patellar tendon rupture. Decision was made to proceed with a patellar tendon repair. DESCRIPTION OF PROCEDURE: After appropriate informed consent was obtained, the patient was taken to the operating room and placed supine on the operating table. A timeout was performed. Patient was i dentified, correct site was identified. Dr. Olivarez administered a spinal anesthetic followed by gener al endotracheal tube anesthesia. She was given 1 g of vancomycin. The right lower extremity was pre pped and draped in usual sterile fashion. Benito were removed. Previous incision was opened. She had ruptured the patellar tendon, just inferior to the inferior pole of the patella. There was tissu e available and I was able to do a primary repair of the tendon back to the tendon using #5 FiberWire , oversewed that with 0 Vicryl in a running stitch, wound was irrigated. The skin was closed with 2- 0 Vicryl and the skin was closed with benito. I instilled 20 mL of 0.5% Marcaine with epinephrine i nto the knee and around the incision. Sterile dressing and a knee immobilizer were applied. Patient was awakened from anesthesia, taken to the recovery in satisfactory condition. There were no immedi ate intraoperative complications. TOTAL TOURNIQUET TIME: 44 minutes at 275 mmHg. COMPLICATIONS: None. DRAINS: None. /[id number]/MODL
[2018-01-05] MEDS: CYANO/VITAMIN B12 1000 MCG TAB PO SCH (10:14)
[2018-01-05] MEDS: FAMOTIDINE 20 MG TAB PO SCH ×2 (10:14→22:24)
[2018-01-05] MEDS: SENNOSIDES/DOCUSATE SODIUM TAB PO SCH ×2 (10:15→22:23)
[2018-01-05] MEDS: FUROSEMIDE 40 MG TAB PO SCH (10:15)
[2018-01-05] MEDS: CYCLOBENZAPRINE 10 MG TAB PO PRN (15:45)
[2018-01-05 15:48] VITALS: RESP 16
[2018-01-05] MEDS ORDERED: VANCOMYCIN 1 GM in NS 250 ML IV SCH (20:30)
[2018-01-05] MEDS: CITALOPRAM 20 MG TAB PO SCH (22:24)
[2018-01-05] MEDS: SPIRONOLACTONE 25 MG TAB PO SCH (22:24)
[2018-01-06] MEDS: ACETAMINOPHEN 325 MG TAB PO SCH ×5 (01:27→23:56)
--- NOTE | 2018-01-06 08:40 | SOAPPROG ---
SOAP Progress Note Assessment/Plan: Assessment: Plan: 01/02/18 08:50 POD#2 RT [facility] poss xarelto 01/03/18 10:51 Xarelto PT/OT [facility] 01/04/18 08:59 check xray prior to [facility] Today 01/06/18 08:38 S/P TKA post op patellar tendon rupture POD#1 repair knee immobilizer at all times restart xarelto Today PT/OT WBAT [facility] Saturday Subjective: working with PT Objective: knee immobilizer in place calf soft 5/5 df/pf Vital Signs Temp Pulse Resp BP Pulse Ox 37.3 C 77 16 108/57 L 96 01/06/18 04:00 01/06/18 04:00 01/06/18 04:00 01/06/18 04:00 01/06/18 04:00 Laboratory Results 01/02/18 05:36 12/26/17 13:13 01/05/18 01/06/18 01/07/18 05:59 05:59 05:59 Intake Total 500 1475 Output Total 1 415 Balance 499 1060 ICD10 Worksheet Patient Problems: Problems Problem Status Onset History of knee replacement Acute History of knee replacement Acute chronic disease mgmt/ transitional care Acute Alcohol abuse Active Benign essential hypertension Active Falls Active Fracture of neck of femur Active Mitral valve regurgitation Active Alcohol intoxication Acute Contusion, knee Acute Fall Acute Hematoma Acute MRSA (methicillin resistant Staphylococcus aureus) Acute ~04/16/17
[2018-01-06] MEDS: SENNOSIDES/DOCUSATE SODIUM TAB PO SCH ×2 (09:07→21:04)
[2018-01-06] MEDS: CYANO/VITAMIN B12 1000 MCG TAB PO SCH (09:07)
[2018-01-06] MEDS: FAMOTIDINE 20 MG TAB PO SCH ×2 (09:07→21:04)
[2018-01-06] MEDS: RIVAROXABAN 10 MG TAB PO SCH (09:08)
[2018-01-06] MEDS: oxyCODONE IR 5 MG TAB PO PRN ×3 (09:08→21:03)
[2018-01-06] MEDS: FUROSEMIDE 40 MG TAB PO SCH (09:08)
[2018-01-06] MEDS ORDERED: VANCOMYCIN 1 GM in NS 250 ML IV SCH (10:30)
[2018-01-06] MEDS: SPIRONOLACTONE 25 MG TAB PO SCH (21:04)
[2018-01-06] MEDS: CITALOPRAM 20 MG TAB PO SCH (21:04)
[2018-01-07] MEDS: oxyCODONE IR 5 MG TAB PO PRN ×2 (02:40→05:33)
[2018-01-07] MEDS: ACETAMINOPHEN 325 MG TAB PO SCH ×2 (05:33→10:56)
[2018-01-07] MEDS: CYCLOBENZAPRINE 10 MG TAB PO PRN (05:33)
[2018-01-07 07:46] VITALS: BP 111/60; PULSE 77; TEMP 97.5; O2SAT 97
[2018-01-07] MEDS: FUROSEMIDE 40 MG TAB PO SCH (08:23)
[2018-01-07] MEDS: SENNOSIDES/DOCUSATE SODIUM TAB PO SCH (08:23)
[2018-01-07] MEDS: RIVAROXABAN 10 MG TAB PO SCH (08:23)
[2018-01-07] MEDS: FAMOTIDINE 20 MG TAB PO SCH (08:23)
[2018-01-07] MEDS: CYANO/VITAMIN B12 1000 MCG TAB PO SCH (08:23)
--- NOTE | 2018-01-07 08:25 | SOAPPROG ---
SOAP Progress Note Assessment/Plan: Assessment: Plan: 01/02/18 08:50 POD#2 RT TKA [facility] Saturday poss xarelto 01/03/18 10:51 Xarelto PT/OT [facility] 01/04/18 08:59 check xray prior to [facility] to [facility] Today 01/06/18 08:38 S/P TKA post op patellar tendon rupture POD#1 repair knee immobilizer at all times restart xarelto Today PT/OT WBAT [facility] Saturday01/07/18 08:24 s/p Pat tendon repair following TKA xarelto PT/OT WBAT knee immob x 4 weeks [facility] Subjective: Working with PT pain ok Objective: dressing c/d/i calf soft 1+ dp.tp pulses 5/5 df/pf Vital Signs Temp Pulse Resp BP Pulse Ox 36.4 C 77 16 111/60 97 01/07/18 07:45 01/07/18 07:45 01/07/18 07:45 01/07/18 07:45 01/07/18 07:45 Laboratory Results 01/02/18 05:36 12/26/17 13:13 01/06/18 01/07/18 01/08/18 05:59 05:59 05:59 Intake Total 1475 1450 Output Total 415 1400 Balance 1060 50 ICD10 Worksheet Patient Problems: Problems Problem Status Onset History of knee replacement Acute History of knee replacement Acute chronic disease mgmt/ transitional care Acute Alcohol abuse Active Benign essential hypertension Active Falls Active Fracture of neck of femur Active Mitral valve regurgitation Active Alcohol intoxication Acute Contusion, knee Acute Fall Acute Hematoma Acute MRSA (methicillin resistant Staphylococcus aureus) Acute ~04/16/17
--- NOTE | 2018-01-07 08:28 | PDIAF ---
- Diagnosis Code Status: Full Code - Medication Management Discharge Medications: Medications to Continue on Transfer Citalopram Hydrobromide [Citalopram HBr 40 MG] 40 mg PO HS 09/30/13 [Last Taken 12/30/17] Cyanocobalamin [Vitamin B12 (*)] 1,000 mcg PO DAILY 09/30/13 [Last Taken ] Herbals/Supplements -Info Only 1 each PO AD 09/30/13 [Last Taken 12/27/17] Spironolactone [Aldactone 25 MG (*)] 25 mg PO HS 09/30/13 [Last Taken 12/30/17] QUEtiapine FUMARATE [Seroquel 25 mg (*)] 25 mg PO HS 01/07/14 [Last Taken ] Multivitamins [Multivitamin (*)] 1 each PO DAILY 08/29/17 [Last Taken 12/27/17] Cholecalciferol Vit D3 [Vitamin D3 2000 units tab (OTC)] 2,000 units PO DAILY # 30 each 09/02/17 [Last Taken 12/27/17] Ascorbic Acid [Vitamin C 500 mg (*)] 500 mg PO DAILY 12/24/17 [Last Taken ] Denosumab [Prolia] 60 mg SQ [id number] 12/24/17 [Last Taken 04/19/17] Diazepam [Valium 5 MG (*)] 5 mg PO DAILY PRN 12/24/17 [Last Taken 12/31/17 04:30 ] Furosemide [Lasix 40 MG (*)] 40 mg PO DAILY 12/24/17 [Last Taken 12/30/17] oxyCODONE/APAP 5/325 [Percocet 5/325 (*)] 1 tab PO DAILY PRN 12/24/17 [Last Taken 12/31/17 04:30] Rivaroxaban [Xarelto 10mg (*)] 10 mg PO DAILY #21 tab 01/03/18 [Last Taken Unknown] oxyCODONE IR [Oxycodone Ir (*)] 5 - 10 mg PO Q3HRS PRN #40 tab 01/03/18 [Last Taken Unknown] Shelter Antibiotics: no Discharge Medications: Refer to the Discharge Home Medication list for PRN reason. PICC Care - Routine: N/A - Orders Services needed: Physical Therapy, Occupational Therapy Isolation Type: Contact Isolation Diet Recommendation: no restrictions on diet Diet Texture: Regular Texture Diet Wound Care Instructions: keep wound clean and dry Sutures/Amy Site: RT knee Activity/Weight Bearing Restrictions: WBAT knee immobilizer at all times - Follow Up Care Current Providers and Referrals: Brennen Negrete MD [Medical Doctor] - Milvia Oliva MD [Primary Care Provider] -
--- NOTE | 2018-01-07 16:00 | ASMTCMCOM ---
CM Note CM Note Notes: Pt medically stable for d/c to [facility], scheduled wc van for 1330. Orders sent in [employer]. Date Signed: 01/07/2018 03:59 PM Electronically Signed By:DAKOTA Adler
--- NOTE | 2018-01-07 16:00 | ASDISCHSUM ---
Discharge Information Plan Status:SNF Medically Cleared to Leave: Discharge Date:01/07/2018 01:43 PM D/C Disposition:[facility] Facility ADT D/C Disposition:[facility] Facility Projected Discharge Date:01/03/2018 11:00 AM Transportation at D/C:Wheelchair Van Discharge Delay Reason: Follow-Up Date:01/03/2018 11:00 AM Discharge Slot: Final Diagnosis: Placement Information Referral Type:*Assisted/SNF Referral ID:[id number] Provider Name:[facility] Address 1:[address] Address 2: City:[place] Selection Factors: State:[place] Patient Contact Information Contact Name:HERB Relationship:Son Address: City: [facility] Phone: [facility] Code: Email: Financial Information Financial Class:Medicare Primary Plan Desc:MEDICARE INPATIENT Primary Plan Number:[id number] Secondary Plan Desc:WALTER PPO Secondary Plan Number:[id number] Assessment Information [facility] CM Progress Note CM Note CM Note Notes: Pt s/p R total knee PT/OT rec SNF. Pt requests referral to [facility] accepts pt. D/c plan of care: [facility] SNF when medically stable. Date Signed: 01/01/2018 04:44 PM Electronically Signed By:DAKOTA Adler [facility] CM Progress Note CM Note CM Note Notes: Updates sent to [facility], pt likely d/c tomorrow. D/c plan of care: [facility] when medically stable Date Signed: 01/03/2018 11:47 AM Electronically Signed By:DAKOTA Adler Case Management Discharge Plan Note Case Management Discharge Discharge Order Complete? Answers: Yes Patient to Obtain Answers: Other Notes: [facility] Medications Transportation Arranged Answers: Other Notes: [facility]/Carmela garcia Transport will Pick (Date 01/04/2018 11:00 AM & Time) Faxed Final Orders Answers: Yes Discharge Comments Notes: Patient discharged to [facility]. Thanh arranged transport. BRODERICK January to call report. Date Signed: 01/04/2018 10:39 AM Electronically Signed By:Ruby Sumner RN [facility] [place] Progress Note CM Note CM Note Notes: Patient was discharged this morning, and transport to [facility] was arranged; however, x-rays showed that she had a patellar tendon tear. Discharge was cancelled. Patient will go to OR tomorrow morning. She has notified her family. We will continue to update [facility] as to her probable EUGENIE. Date Signed: 01/04/2018 11:40 AM Electronically Signed By:Ruby Sumner RN [facility] CM Progress Note CM Note CM Note Notes: Pt medically stable for d/c to [facility], scheduled wc van for 1330. Orders sent in [employer]. Date Signed: 01/07/2018 03:59 PM Electronically Signed By:DAKOTA Adler Intervention Information Intervention Type:*Incorrect Registration Date of Service:12/31/2017 01:59 PM Patient Type:Observation Staff Member:BRODERICK Ritchie, Lindsey Hours: Discipline: Severity: Comment: Intervention Type:*MEHTA-Signed Date of Service:01/01/2018 12:29 PM Patient Type:Observation Staff Member:Tabitha Lane Hours: Discipline: Severity: Comment: Intervention Type:*IM-Signed Date of Service:01/07/2018 10:07 AM Patient Type:Inpatient Staff Member:Tabitha Lane Hours: Discipline: Severity: Comment:
--- NOTE | 2018-01-11 07:58 | GDS ---
[f rep st] DISCHARGE SUMMARY REASON FOR ADMISSION: Osteoarthritis with tibial plateau fracture, right knee PROCEDURE PERFORMED: Right total knee arthroplasty with Vasyl robot assist. HISTORY: Susan is a 67-year-old female who fell in August and sustained an impacted comminuted proxi mal tibial fracture mainly involving the lateral tibial plateau. Her bone quality was so poor decisi on was made to allow this to consolidate and then proceed with a total knee arthroplasty. This was d one on December 31, 2017. She did well postoperatively up until 3 days postop when she had a slip and fa ll while she was in the bathroom with the physical therapist. She did not actually hit the ground. When she was lowered to the ground, she was complaining of knee pain the next day, and an inability t o straighten her knee. X-rays were obtained which showed a patellar tendon rupture due to the positi on of the patella and decision was made to proceed with a repair of that patellar tendon which was un dertaken on 01/05/2018 without complication. She was then transferred back to her room in a knee imm obilizer weightbearing as tolerated, mobilized again with physical and occupational therapy. She was continued on Xarelto postoperatively. She did have a DVT after her initial total knee replacement on the left so we treated her more aggressively with DVT prophylaxis with Xarelto, and she will continu e on that for 21 days postoperatively. She was transferred to [facility] on 01/07/2018. Again, she w ill be in the knee immobilizer time analysis clerk without range of motion but weightbearing as tolerated for t he next 4 weeks. I will see her back in the office in 2 weeks to check the incision. Condition at [facility] is stable. She will resume her home medications and use Percocet for pain. /[id number]/MODL
== END 2018-01-07 13:43 | DRG 470 ==
LOC: INTOOBSV 05:50 → F3N 05:50 → OBSVTOIN 01-01 14:47
PROVIDERS: ADMIT Orthopaedic Surgery; ATTEND Orthopaedic Surgery
PROC: 0SRC0J9 Replacement of Right Knee Joint with Synthetic Substitute, Cemented, Open Approach (ICD-10-PCS; principal; 2018-01-01)
PROC: 8E0Y0CZ Robotic Assisted Procedure of Lower Extremity, Open Approach (ICD-10-PCS; principal; 2018-01-01)
PROC: 0LQQ0ZZ Repair Right Knee Tendon, Open Approach (ICD-10-PCS; 2018-01-05)
DX: M17.11 Unilateral primary osteoarthritis, right knee (principal); S86.811A Strain of other muscle(s) and tendon(s) at lower leg level, right leg, initial encounter; W19.XXXA Unspecified fall, initial encounter; Y92.231 Patient bathroom in hospital as the place of occurrence of the external cause; I25.10 Atherosclerotic heart disease of native coronary artery without angina pectoris; I10 Essential (primary) hypertension; I34.0 Nonrheumatic mitral (valve) insufficiency; Z86.14 Personal history of Methicillin resistant Staphylococcus aureus infection; Z98.84 Bariatric surgery status
CPT/HCPCS: 97116-GP; 97162-GP; 97164-GP; 97166-GO; 97530-GP; 97535-GO; C1713; G8978-GP-CK; G8979-GP-CJ; G8987-GO-CK; G8988-GO-CI; J0690; J0735; J1885; J2250; J2704; J2795; J3010; J3370

== ENCOUNTER 2018-04-02 00:59 | Emergency (ER) | payer OTHER ==
--- NOTE | 2018-04-02 01:03 | EDPHY ---
H & P Time Seen by Provider: 04/02/18 01:03 HPI/ROS: HPI CHIEF COMPLAINT: Mechanical trip and fall, bilateral knee pain, chest wall pain HISTORY OF PRESENT ILLNESS: Very pleasant 67-year-old female, she presents emergency room after she had a mechanical trip and fall while going into her bedroom. She landed on both of her knees. Additionally she has anterior chest wall pain. She denies head strike, denies headache or neck pain. Denies shortness of breath. Denies LOC. She was unable to get up and called 911 for help. Past Medical History: Anxiety, depression Past Surgical History: Multiple orthopedic surgeries, left hip, right knee Social History: Denies drugs alcohol tobacco. History of alcoholism. Has not had a drink since August. Family History: Noncontributory ROS REVIEW OF SYSTEMS: A comprehensive 10 point review of systems is otherwise negative aside from elements mentioned in the history of present illness. Exam Constitutional appears well nontoxic no acute distress triage nursing summary reviewed, vital signs reviewed, awake/alert. Eyes normal conjunctivae and sclera, EOMI, PERRLA. HENT normal inspection, atraumatic, moist mucus membranes, no epistaxis, neck supple/ no meningismus, no raccoon eyes. Respiratory clear to auscultation bilaterally, normal breath sounds, no respiratory distress, no wheezing. Cardiovascular chest wall mild tender palpation of the sternum, no crepitus, no flail chest, good breath sounds bilaterally rate normal, regular rhythm, no murmur, no edema, distal pulses normal. Gastrointestinal soft, non-tender, no rebound, no guarding, normal bowel sounds, no distension, no pulsatile mass. Genitourinary no CVA tenderness. Musculoskeletal large edematous legs bilaterally, mild tender palpation over both anterior knees. no midline vertebral tenderness, full range of motion, no calf swelling, no tenderness of extremities, no meningismus, good pulses, neurovascularly intact. Skin pink, warm, & dry, no rash, skin atraumatic. Neurologic awake, alert and oriented x 3, AAOx3, moves all 4 extremities equally, motor intact, sensory intact, CN II-XII intact, normal cerebellar, normal vision, normal speech. Psychiatric normal mood/affect. Heme/Lymph/Immune no lymphadenopathy. Differential Diagnosis: Includes but is not limited to in a particular order mechanical trip and fall, multiple contusions, soft tissue injury, fractures, chest wall injury, chest wall contusion, pneumothorax, hemothorax, rib fractures , sternal fracture Medical Decision Making: Plan for this patient bilateral knee x-rays, chest x- ray two view [place] for pain control re-evaluate. Re-evaluation: X-ray of both knees reviewed by myself. Hardware appears to be in place. I do not appreciate acute fracture of either knee. Extensive arthritic changes. Extensive hardware present. X-ray of the chest one view reviewed I do not appreciate any acute traumatic injury of the chest x-ray. Appears similar previous x-ray slightly or haziness in both lung saenz but has overlying braw. Otherwise no pneumothorax or significant traumatic injury on chest x-ray visualized by myself. 0214AM: I did re-evaluate her she is resting comfortably no acute distress. Feels better after [place]. Discussed her x-rays of her chest bilateral knees. Source: Patient, EMS - Personal History Tetanus Vaccine Date: 2006 - Medical/Surgical History Hx Asthma: No Hx Chronic Respiratory Disease: No Hx Diabetes: No Hx Cardiac Disease: No Hx Renal Disease: No Hx Cirrhosis: No Hx Alcoholism: No Hx HIV/AIDS: No Hx Splenectomy or Spleen Trauma: No Other PMH: ORIF L hip "12 ,osteoporosis,mitral valve regurgitation, anxiety, depression, pulm. HTN,. c-sections, L1 vertebrae in '01, gastric bypass'05, lap zhanna R wrist fx - Social History Smoking Status: Former smoker Constitutional: Initial Vital Signs Temperature (C) 37.3 C 04/02/18 01:01 Heart Rate 92 04/02/18 01:01 Respiratory Rate 18 04/02/18 01:01 Blood Pressure 129/72 H 04/02/18 01:01 O2 Sat (%) 93 04/02/18 01:01 O2 Delivery Mode Room Air Allergies/Adverse Reactions: alendronate sodium [From Fosamax] Allergy (Verified 04/02/18 01:07) it's been so long since i've had it- caused heavy heart hydromorphone HCl [From Dilaudid] Allergy (Verified 04/02/18 01:07) Itching morphine [Morphine] Allergy (Verified 04/02/18 01:07) Itching HAYFEVER Allergy (Mild, Uncoded 12/25/17 14:00) SNEEZING, RUNNY NOSE Home Medications: Medication Instructions Recorded Citalopram Hydrobromide 40 mg PO HS 09/30/13 [Citalopram HBr 40 MG] Cyanocobalamin [Vitamin B12 (*)] 1,000 mcg PO DAILY 09/30/13 Herbals/Supplements -Info Only 1 each PO AD 09/30/13 Spironolactone [Aldactone 25 MG 25 mg PO HS 09/30/13 (*)] QUEtiapine FUMARATE [Seroquel 25 25 mg PO HS 01/07/14 mg (*)] Multivitamins [Multivitamin (*)] 1 each PO DAILY 08/29/17 Cholecalciferol Vit D3 [Vitamin D3 2,000 units PO DAILY #30 each 09/02/17 2000 units tab (OTC)] Ascorbic Acid [Vitamin C 500 mg 500 mg PO DAILY 12/24/17 (*)] Denosumab [Prolia] 60 mg SQ .[id number] 12/24/17 Diazepam [Valium 5 MG (*)] 5 mg PO DAILY PRN 12/24/17 Furosemide [Lasix 40 MG (*)] 40 mg PO DAILY 12/24/17 Rivaroxaban [Xarelto 10mg (*)] 10 mg PO DAILY #21 tab 01/03/18 Medical Decision Making - Data Points Medications Given: Discontinued Medications Hydrocodone Bitart/Acetaminophen ([place] 5/325) 1 tab PO EDNOW ONE Stop: 04/02/18 01:13 Last Admin: 04/02/18 01:17 Dose: 1 tab Departure - Departure Disposition: Home, Routine, Self-Care Clinical Impression: Multiple contusions Condition: Good Instructions: Contusion in Adults (ED) Additional Instructions: 1. Recommend ice elevation of her extremities 2. Recommend anti-inflammatory pain medicine 3. Return emergency room if there is worsening symptoms questions or concerns. Referrals: Patient,NotPresent [Unknown] - As per Instructions
[2018-04-02] MEDS ORDERED: HYDROCODONE/APAP 5/325 TAB PO ONE (01:12)
[2018-04-02 03:25] VITALS: BP 123/71
== END 2018-04-02 03:28 | disposition home or self-care (01) ==
LOC: EDUNIT#
DX: S20.219A Contusion of unspecified front wall of thorax, initial encounter (principal); S80.01XA Contusion of right knee, initial encounter; S80.02XA Contusion of left knee, initial encounter; I10 Essential (primary) hypertension; Z87.891 Personal history of nicotine dependence; Z79.01 Long term (current) use of anticoagulants; W01.0XXA Fall on same level from slipping, tripping and stumbling without subsequent striking against object, initial encounter

== ENCOUNTER → 2019-02-12 | Outpatient (CLI) | payer OTHER | LOC: FIMAGING 09:53 | PROVIDERS: ATTEND Internal Medicine Geriatric Medicine | DX: Z12.31 Encounter for screening mammogram for malignant neoplasm of breast (principal); Z13.820 Encounter for screening for osteoporosis; M81.0 Age-related osteoporosis without current pathological fracture; M22.2X1 Patellofemoral disorders, right knee; M54.9 Dorsalgia, unspecified; R29.890 Loss of height; Z78.0 Asymptomatic menopausal state; Z91.81 History of falling; Z79.899 Other long term (current) drug therapy; Z80.3 Family history of malignant neoplasm of breast; Z96.643 Presence of artificial hip joint, bilateral ==